=== PATIENT | male | born 1940 | race Caucasian/White ===

== ENCOUNTER → 2017-02-03 | Outpatient (CLI) | payer BC ==
[~2017-02-03] MED LIST: AMLO2.5T PO; ASPI81TA28 PO; ATOR-26 PO; CHOL100027 PO; DVN80 PO; FURO-85 PO; HYDR-4717 PO; INSDGI SC; INSU1INJ33 SQ; LEVO25TA5 PO; LYR50 PO; METO50TA16 PO; MISCCAP80 PO; NTRGSL/4 UT; NVLGI7030 SC; POTA-335 PO; PRLSR20 PO; TAMS0.4C38 PO; TRAM-10 PO
[2017-02-03 12:27] LABS: ALKALINE PHOSPHATASE 103 U/L (45-117); ALT/SGPT 24 U/L (12-78); AST/SGOT 10 U/L (15-37); BLOOD UREA NITROGEN 27 mg/dl (7-18); BUN/CREATININE RATIO 13.3 (10-20); CALCIUM 9.8 mg/dl (8.5-10.1); CARBON DIOXIDE 27 mmol/L (21-32); CHLORIDE 109 mmol/L (98-107); CHOLESTEROL 146 mg/dl (0-200); CHOLESTEROL/HDL RATIO 3.9; GLUCOSE 181 mg/dl (70-99); HDL CHOLESTEROL 37 mg/dl; LDL CHOLESTEROL CALCULATED 82 mg/dl; SODIUM 142 mmol/L (136-145); TRIGLYCERIDES 136 mg/dl (0-150); VERY LOW DENSITY LIPOPROT CALC 27 mg/dl
[2017-02-03 12:52] LABS: ESTIMATED AVERAGE GLUCOSE 183 mg/dl; HA1C FLAG Normal (Normal)
== END | disposition home or self-care (01) ==
LOC: C.LABBC 09:13
PROVIDERS: ATTEND Physician Assistant
DX: E11.9 Type 2 diabetes mellitus without complications (principal); N40.2 Nodular prostate without lower urinary tract symptoms; N18.3 Chronic kidney disease, stage 3 (moderate)

== ENCOUNTER → 2017-04-05 | Outpatient (CLI) | payer BC ==
[2017-04-05 11:30] LABS: HEMATOCRIT 37.6 % (42-52); MEAN CELL VOLUME 84.1 fL (80-100); MEAN CORPUSCULAR HGB CONC 30.9 g/dl (32-36); MEAN PLATELET VOLUME 11.6 fL (7.4-10.4); PLATELET COUNT 244 K/uL (130-400); RED BLOOD COUNT 4.47 M/uL (4.7-6.1)
[2017-04-05 11:44] LABS: BLOOD UREA NITROGEN 32 mg/dl (7-18); BUN/CREATININE RATIO 14.7 (10-20); CALCIUM 10.2 mg/dl (8.5-10.1); CARBON DIOXIDE 28 mmol/L (21-32); CHLORIDE 107 mmol/L (98-107); GLUCOSE 185 mg/dl (70-99); POTASSIUM 4.3 mmol/L (3.5-5.1); SODIUM 142 mmol/L (136-145)
[2017-04-05 11:45] LABS: URINE APPEARANCE CLEAR (CLEAR); URINE BILIRUBIN NEG (NEG); URINE COLOR YELLOW; URINE NITRITE NEG (NEG); URINE SPECIFIC GRAVITY 1.021 (1.000-1.030); UROBILINOGEN NEG (NEG)
[2017-04-05 11:47] LABS: MANUAL MICROSCOPIC REQUIRED? NO; REVIEW REQ? NO
[2017-04-05 11:49] LABS: FERRITIN 11.4 ng/ml (8.0-388.0); PHOSPHORUS 2.7 mg/dl (2.5-4.9); TOTAL IRON BINDING CAPACITY 378 mcg/dl (250-450)
[2017-04-05 12:04] LABS: URINE PROTIEN/CREAT RATIO 0.2 (0-0.2); URINE TOTAL PROTEIN 32.3 mg/dl (0-11.9)
== END ==
LOC: C.LABBC 08:55
PROVIDERS: ATTEND Physician Assistant Medical
DX: N18.3 Chronic kidney disease, stage 3 (moderate) (principal); I10 Essential (primary) hypertension; D64.9 Anemia, unspecified; E55.9 Vitamin D deficiency, unspecified; R31.0 Gross hematuria

== ENCOUNTER → 2017-05-22 | Outpatient (CLI) | payer BC ==
[2017-05-22 14:15] LABS: ESTIMATED AVERAGE GLUCOSE 214 mg/dl; HA1C FLAG Normal (Normal)
== END | disposition home or self-care (01) ==
LOC: C.LABBC 09:59
PROVIDERS: ATTEND Physician Assistant
DX: E11.9 Type 2 diabetes mellitus without complications (principal); Z79.4 Long term (current) use of insulin

== ENCOUNTER → 2017-06-29 | Outpatient (CLI) | payer BC ==
[~2017-06-29] MED LIST changes: -HYDR-4717 PO; -INSDGI SC; -METO50TA16 PO; -POTA-335 PO
== END | disposition home or self-care (01) ==
LOC: C.MAMM 09:04
PROVIDERS: ATTEND Internal Medicine Geriatric Medicine
DX: M85.89 Other specified disorders of bone density and structure, multiple sites (principal)

== ENCOUNTER → 2017-09-11 | Outpatient (CLI) | payer BC ==
[~2017-09-11] MED LIST changes: -CHOL100027 PO
[2017-09-11 10:50] LABS: URINE APPEARANCE CLEAR (CLEAR); URINE BILIRUBIN NEG (NEG); URINE COLOR YELLOW; URINE NITRITE NEG (NEG); URINE SPECIFIC GRAVITY 1.023 (1.000-1.030); UROBILINOGEN NEG (NEG)
[2017-09-11 10:58] LABS: MANUAL MICROSCOPIC REQUIRED? NO; REVIEW REQ? NO
== END | disposition home or self-care (01) ==
LOC: C.LABBC 08:40
PROVIDERS: ATTEND Internal Medicine Endocrinology, Diabetes & Metabolism
DX: E83.52 Hypercalcemia (principal); E21.3 Hyperparathyroidism, unspecified

== ENCOUNTER → 2017-10-09 | Outpatient (CLI) | payer BC ==
[2017-10-09 13:19] LABS: HEMATOCRIT 38.8 % (42-52); MEAN CELL VOLUME 84.2 fL (80-100); MEAN CORPUSCULAR HEMOGLOBIN 26.7 pg (25-34); MEAN CORPUSCULAR HGB CONC 31.7 g/dl (32-36); MEAN PLATELET VOLUME 11.4 fL (7.4-10.4); PLATELET COUNT 215 K/uL (130-400); RED BLOOD COUNT 4.61 M/uL (4.7-6.1); WHITE BLOOD COUNT 11.46 K/uL (4.8-10.8)
[2017-10-09 13:48] LABS: URINE APPEARANCE CLEAR (CLEAR); URINE BILIRUBIN NEG (NEG); URINE COLOR YELLOW; URINE EPITHELIAL CELL AUTO 0-5 /lpf (0-5); URINE NITRITE NEG (NEG); URINE SPECIFIC GRAVITY 1.024 (1.000-1.030); UROBILINOGEN NEG (NEG)
[2017-10-09 13:57] LABS: MANUAL MICROSCOPIC REQUIRED? NO; REVIEW REQ? NO
[2017-10-09 14:03] LABS: URINE PROTIEN/CREAT RATIO 0.2 (0-0.2); URINE TOTAL PROTEIN 38.3 mg/dl (0-11.9)
[2017-10-09 14:36] LABS: BLOOD UREA NITROGEN 31 mg/dl (7-18); CALCIUM 9.7 mg/dl (8.5-10.1); CARBON DIOXIDE 23 mmol/L (21-32); CHLORIDE 108 mmol/L (98-107); CREATININE 1.85 mg/dl (0.60-1.40); GLUCOSE 152 mg/dl (70-99); SODIUM 138 mmol/L (136-145)
[2017-10-09 14:37] LABS: PHOSPHORUS 2.4 mg/dl (2.5-4.9)
[2017-10-09 14:39] LABS: ESTIMATED AVERAGE GLUCOSE 192 mg/dl; HA1C FLAG Normal (Normal)
== END | disposition home or self-care (01) ==
LOC: C.LABBC 09:29
PROVIDERS: ATTEND Internal Medicine Nephrology
DX: N18.3 Chronic kidney disease, stage 3 (moderate) (principal); I12.9 Hypertensive chronic kidney disease with stage 1 through stage 4 chronic kidney disease, or unspecified chronic kidney disease; D64.9 Anemia, unspecified; E55.9 Vitamin D deficiency, unspecified; E11.65 Type 2 diabetes mellitus with hyperglycemia

== ENCOUNTER 2022-10-20 11:16 | Inpatient (IN) ==
--- NOTE | 2022-10-20 11:38 | Emergency Department Note ---
Impression & Plan Chest pain, A-fib, Coronary artery disease ED Provider Note NAME: RENEA TORIBIO AGE: 82 SEX: M : 1940 ARRIVES VIA: Walk-In INFORMANT: Patient ED PROVIDER(S): Oh Rothman DO CHIEF COMPLAINT: chest pain HPI: Patient is an 82-year-old male who presents to the ER for chest pain referred in by the PCP. He had his annual visit today. He notes he has been having intermittent chest pain with exertion over the past couple weeks. Today it was worse. Midsternal associate with shortness of breath. No arm or jaw pain. This morning he had an EKG at the PCPs and showed A. fib and he was referred in. He does have a history of previous stents as well as a CABG about 7 years ago. Following having the CABG he has not had A. fib. He notes his heart rate is normally running in the 50s to 60s. Recently over the past week he has been 70s to 80s. ROS: See above HPI for pertinent positives & negatives. A total of 10 systems reviewed and were otherwise negative. PAST MEDICAL HISTORY:See Below PAST SURGICAL HISTORY:See Below FAMILY HISTORY:See Below SOCIAL HISTORY:See Below HOME MEDICATIONS:See Below ALLERGIES:See Below VITALS:See Below PHYSICAL EXAMINATION: GENERAL: Sitting up in bed, alert, well appearing, well nourished, no distress, non-toxic EYE EXAM: normal conjunctiva. OROPHARYNX: mucous membranes are moist NECK: supple, no nuchal rigidity, no adenopathy, non-tender LUNGS: Clear to auscultation. Normal chest wall mechanics HEART: no murmurs, S1 normal and S2 normal ABDOMEN: abdomen soft, non-tender, normo-active bowel sounds, no masses, no rebound or guarding. UPPER EXTREMITIES: upper extremities are grossly normal. LOWER EXTREMITIES: No pitting edema. NEURO EXAM: Normal sensorium, cranial nerves II-XII grossly intact, normal speech, no gross weakness of arms, no gross weakness of legs. MEDICAL DECISION MAKING: Patient is a 82-year-old male who presents ER for exertional chest pain which has been going off and on for the past several weeks and has worsened significantly today. Was seen by the PCP referred in. History of CAD, diabetes, CABG with previous A. fib has been under control since about 7 years ago. They obtained EKG today referred him in for A. fib. IV was established blood work was obtained. Labs show no significant leukocytosis. No anemia. BMP along with LFTs bilirubin and lipase was unremarkable. Troponin was 18. EKG did show A. fib but rate controlled. Chest x-ray unremarkable. He was given aspirin. Pain-free while in the ER. Updated at bedside. Discussed with Dr. Fanny Lea for further evaluation and admission Triage Nursing notes reviewed. Limited review of prior medical records performed Vital Signs: reviewed and remarkable for no significant abnormalities Differential diagnosis: Cardiac ischemia, aortic dissection, pulmonary embolism, pneumothorax, pneumonia, pericarditis, myocarditis, esophageal rupture, GERD, cholecystitis, pancreatitis, musculoskeletal, as well as other pathologies. ER treatment provided: See below Diagnostics interpreted by me: ECG: A. fib rate of 75 Left axis No PVCs QTC 406 Cardiac Monitoring: An order was placed for continuous cardiac monitoring. The m onitor shows a rate of 80 with AFIB rhythm. Laboratory studies: As stated above and show below. Imaging studies: Portable AP upright 1 view of the chest shows no focal infiltrate or pneumothorax Consultation(s): Discussed definitely testing for further evaluation Procedures: none Critical Care: None Past Med/Surg History Medical History Carotid artery stenosis Chronic kidney disease, stage III (moderate) Coronary artery disease Followed by Cardiology, Dr. Delvalle Diabetes mellitus, type II Followed by Endocrinology Diabetic peripheral neuropathy associated with type 2 diabetes mellitus GERD (gastroesophageal reflux disease) History of Mohs micrographic surgery for skin cancer History of squamous cell carcinoma of skin Hyperlipidemia Hypertension Hypothyroidism Low back pain Moderate obstructive sleep apnea Multiple thyroid nodules (~2014) previous eval by Endo and repeat US Osteopenia Pancreatitis Peripheral vascular disease Prostate nodule Vitamin B12 deficiency Vitamin D deficiency Surgical History H/O colonoscopy History of coronary artery stent placement History of Mohs 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 January 2021 S/P CABG (coronary artery bypass graft) (~2014) S/P cholecystectomy Status post incision and drainage Family History Mother Diabetes Myocardial infarction Unknown Coronary heart disease Father Myocardial infarction Denies family history of Ovarian cancer Prostate cancer Breast cancer Lung cancer Colorectal cancer Social History Smoking Status: Former smoker Age Quit Using Tobacco: 36; Cigarettes Per Day: 1 pack a day; Second Hand Exposure: No; Hx Alcohol Use: Yes Alcohol type: beer Alcohol Intake Frequency: Monthly or Le ss Alcohol Intake Frequency Comment: social Hx Substance Use: No Preferred Language: Swedish Communication Ability: Effective Visual Impairment: Limited Hearing Ability: Normal marital status: Current Living Situation: Spouse current occupational status: retired How many Children do You have: 2 Feels Safe at Home: Yes Childhood Exposure to Second-Hand Smoke: Yes caffeine: Yes (cup of coffee daily ) Dental Care, Regularly: Yes Physical Activity Frequency: Daily Physical Activity Frequency Comment: walk Seatbelt Use: always Sunscreen Use: Yes Allergies Allergies Allergy/AdvReac Type Severity Reaction Status Date / Time shellfish derived Allergy Severe throat Verified 10/20/22 09:54 swelling adhesive Allergy Mild TAPE=RASH Verified 10/20/22 09:54 acetaminophen Allergy Unknown Verified 10/20/22 09:54 doxazosin Allergy Unknown Verified 10/20/22 09:54 oxycodone Allergy Unknown Unknown Verified 10/20/22 09:54 shrimp Allergy Unknown Unknown rxn Verified 10/20/22 09:54 codeine AdvReac Intermediate HALLUCINATI Verified 10/20/22 09:54 ONS diltiazem [From Cardizem] AdvReac Intermediate GI upset Verified 10/20/22 09:54 felodipine [From Plendil] AdvReac Intermediate edema Verified 10/20/22 09:54 heparin AdvReac Intermediate INEFFECTIVE Verified 10/20/22 09:54 zolpidem AdvReac Intermediate hallucinati Verified 10/20/22 09:54 ng diphenhydramine AdvReac Mild jittery Verified 10/20/22 09:54 duloxetine AdvReac Verified 10/20/22 09:54 Home Meds Home Medications Medication Instructions Recorded Confirmed amlodipine 5 mg tablet 5 mg PO DAILY #1 tab 08/02/19 10/20/22 aspirin 81 mg tablet,delayed 81 mg PO DAILY 08/06/19 10/20/22 release (Adult Aspirin Regimen) lactobacillus combination no.8 3 3,000 mmu cells PO DAILY 08/06/19 10/20/22 billion cell capsule (Adult Probiotic) rosuvastatin 40 mg tablet (Crestor) 40 mg PO DAILY 08/06/19 10/20/22 furosemide 40 mg tablet (Lasix) 60 mg PO DAILY 09/30/19 10/20/22 nystatin-triamcinolone 100,000 1 applic topical BID PRN irritation 09/08/21 10/20/22 unit/g-0.1 % topical cream mecobalamin (vitamin B12) 1,000 2,000 mcg PO DAILY 04/19/22 10/20/22 mcg chewable tablet nitroglycerin 0.3 mg sublingual 0.3 mg sublingual Q5M PRN Chest 04/19/22 10/20/22 tablet Pain cyanocobalamin (vitamin B-12) 1,000 mcg PO DAILY 10/20/22 10/20/22 1,000 mcg capsule omeprazole 20 mg capsule,delayed 20 mg PO QPM 10/20/22 10/20/22 release Previous Rx's Medication Instructions Recorded semaglutide 1 mg/dose (4 mg/3 mL) 1 mg (0.75 mL) subcut .COMPLEX #9 10/25/21 subcutaneous pen injector (Ozempic) mL tamsulosin 0.4 mg capsule 0.4 mg PO DAILY #90 caps 01/03/22 CPAP Supplies #1 ea 02/17/22 levothyroxine 25 mcg tablet See Rx Instructions .Route 03/30/22 .COMPLEX #90 tabs insulin degludec 200 unit/mL (3 90 unit (0.45 mL) subcut DAILY #45 05/17/22 mL) subcutaneous pen (Tresiba mL FlexTouch U-200 insulin) pregabalin 75 mg capsule 75 mg PO BID #180 caps 05/19/22 insulin aspart U-100 100 unit/mL See Rx Instructions .Route 06/22/22 (3 mL) subcutaneous pen (Novolog .COMPLEX #45 mL Flexpen U-100 Insulin aspart) OneTouch Verio test strips (blood #400 strips 07/13/22 sugar diagnostic) OneTouch Delica Lancets 33 gauge #400 ea 08/08/22 (lancets) valsartan 80 mg tablet 80 mg PO DAILY #90 tabs 10/04/22 metoprolol tartrate 25 mg tablet See Rx Instructions .Route 10/05/22 .COMPLEX #180 tabs pen needle, diabetic 31 gauge x #400 ea 10/10/22 5/16" (BD Ultra-Fine Short Pen Needle) Results & Data (ED) Vital Signs Vital Signs - 24 hr 10/20/22 11:19 10/20/22 11:33 10/20/22 11:35 Temperature 36.0 C L Temperature Source Temporal Artery Scan Pulse Rate 78 81 73 Pulse Rate from SpO2 Sensor 77 Pulse Rhythm Regular Pulse Strength Normal Respiratory Rate 18 16 21 Blood Pressure 156/83 H Blood Pressure Mean 107 Blood Pressure Position Sitting Pulse Oximetry 95 96 96 Oxygen Delivery Method Room Air Room Air Sepsis Recent Fever Within 48 Hours No Sepsis New/Unexplained Change in Mental Status No Sepsis Action Taken by Nursing No Action Required 10/20/22 11:40 10/20/22 11:50 10/20/22 12:00 Temperature Temperature Source Pulse Rate 71 67 Pulse Rate from SpO2 Sensor 74 69 Pulse Rhythm Pulse Strength Respiratory Rate 17 14 Blood Pressure 114/70 Blood Pressure Mean 84 Blood Pressure Position Pulse Oximetry 95 94 Oxygen Delivery Method Sepsis Recent Fever Within 48 Hours Sepsis New/Unexplained Change in Mental Status Sepsis Action Taken by Nursing 10/20/22 12:00 10/20/22 12:10 10/20/22 12:20 Temperature Temperature Source Pulse Rate 75 66 62 Pulse Rate from SpO2 Sensor 73 63 63 Pulse Rhythm Pulse Strength Respiratory Rate 16 10 L 11 L Blood Pressure Blood Pressure Mean Blood Pressure Position Pulse Oximetry 92 94 93 Oxygen Delivery Method Sepsis Recent Fever Within 48 Hours Sepsis New/Unexplained Change in Mental Status Sepsis Action Taken by Nursing 10/20/22 12:30 10/20/22 12:30 10/20/22 12:40 Temperature Temperature Source Pulse Rate 73 72 Pulse Rate from SpO2 Sensor 71 70 Pulse Rhythm Pulse Strength Respiratory Rate 17 14 Blood Pressure 118/70 Blood Pressure Mean 86 Blood Pressure Position Pulse Oximetry 94 93 Oxygen Delivery Method Sepsis Recent Fever Within 48 Hours Sepsis New/Unexplained Change in Mental Status Sepsis Action Taken by Nursing 10/20/22 12:50 Temperature Temperature Source Pulse Rate 58 L Pulse Rate from SpO2 Sensor 62 Pulse Rhythm Pulse Strength Respiratory Rate 20 Blood Pressure Blood Pressure Mean Blood Pressure Position Pulse Oximetry 94 Oxygen Delivery Method Sepsis Recent Fever Within 48 Hours Sepsis New/Unexplained Change in Mental Status Sepsis Action Taken by Nursing Laboratory Data Result diagrams: 10/20/22 11:55 10/20/22 11:55 Lab Results 10/20/22 10/20/22 Range/Units 11:55 11:55 WBC 7.11 (4.8-10.8) K/ul RBC 4.55 L (4.63-6.08) M/uL Hgb 13.1 L (14.0-18.0) g/dl Hct 40.1 (40.1-51.0) % MCV 88.1 (80.0-100.0) fL MCH 28.8 (25.0-34.0) pg MCHC 32.7 (32.0-36.0) g/dL RDW Std Deviation 45.3 (36.4-46.3) fL RDW Coeff of Poly 14.0 (11.5-14.5) % Plt Count 204 (130-400) K/uL MPV 10.9 (9.4-12.4) fL Immature Gran % (Auto) 0.3 % Neut % (Auto) 65.3 % Lymph % (Auto) 21.9 % [place] % (Auto) 7.3 % Eos % (Auto) 4.8 % Baso % (Auto) 0.4 % Neut # (Auto) 4.64 (1.4-6.5) K/uL Lymph # (Auto) 1.56 (1.2-3.4) K/uL [place] # (Auto) 0.52 (0.24-0.82) K/uL Eos # (Auto) 0.34 (0-0.50) K/uL Baso # (Auto) 0.03 (0-0.2) K/uL Immature Gran # (Auto) 0.02 (0.00-0.02) K/uL Sodium 141 (136-145) mmol/L Potassium 3.7 (3.5-5.1) mmol/L Chloride 107 (98-107) mmol/L Carbon Dioxide 28 (21-32) mmol/L Anion Gap 6 (3-11) BUN 17 (6-23) mg/dl Creatinine 1.64 H (0.6-1.4) mg/dl Est Cr Clr Drug Dosing 44.2 ml/min Est GFR ( Amer) 44.8 ml/min Est GFR (Non-Af Amer) 38.6 ml/min BUN/Creatinine Ratio 10.4 (10-20) Glucose 166 H (70-99(Fasting)) mg/dl Calcium 10.2 H (8.5-10.1) mg/dl Total Bilirubin 0.6 (0.2-1.0) mg/dl AST 16 (13-39) U/L ALT 17 (7-52) U/L Alkaline Phosphatase 68 (34-104) U/L Troponin I High Sens 18.0 (0-20) pg/ml Total Protein 6.8 (6.0-8.3) gm/dl Albumin 3.9 (3.4-5.0) gm/dl Globulin 2.9 (2.5-4.0) gm/dl Albumin/Globulin Ratio 1.3 (0.9-2) Lipase 31 (11-82) U/L Administered Medications Discontinued Medications Aspirin (Aspirin Chew 324 Mg) 240 mg PO NOW STA Stop: 10/20/22 12:38 Last Admin: 10/20/22 12:45 Dose: 240 mg Documented By: [facility] Imaging Data Radiologist's Impression: Chest X-Ray 10/20/22 11:24 XR chest 1V portable HISTORY: 82 years-old Male Chest pain, nonspecific COMPARISON: Acute abdominal series radiographs 10/27/2015 TECHNIQUE: AP view of the chest FINDINGS: Cardiac silhouette is enlarged. Prior median sternotomy with CABG. No pneumothorax, pleural effusion, airspace consolidation or overt pulmonary edema. Degenerative changes of the shoulders and spine. Moderate sized hiatal hernia. IMPRESSION: 1. Cardiomegaly without acute process. 2. Moderate sized hiatal hernia. ACT 112: Negative or not required by law. The above report was generated using voice recognition software. It may contain grammatical, syntax or spelling errors. Electronically signed by: Michael Ro M.D. 10/20/2022 11:47 AM Discharge Plan Visit Data Chief Complaint: Chest Pain Stated Complaint: TESTING REQUEST ED Provider: Oh Rothman Discharge Problem: Chest pain, A-fib, Coronary artery disease Forms Stand Alone Forms: My [employer] Prescriptions Prescriptions: No Action tamsulosin 0.4 mg capsule 0.4 mg PO DAILY Qty: 90 3RF Rx Instructions: TAKE 1 CAPSULE DAILY. (DME) CPAP Supplies Misc See Rx Instructions .Route Qty: 1 0RF Rx Instructions: As directed levothyroxine 25 mcg tablet See Rx Instructions .ROUTE .COMPLEX Qty: 90 3RF Dose Instruction: TAKE 1 TABLET BY MOUTH EVERY DAY Rx Instructions: TAKE 1 TABLET BY MOUTH EVERY DAY Tresiba FlexTouch U-200 200 unit/mL (3 mL) insulin pen 90 unit SQ DAILY Qty: 45 1RF Novolog Flexpen U-100 Insulin 100 unit/mL (3 mL) insulin pen See Rx Instructions .ROUTE .COMPLEX Qty: 45 3RF Rx Instructions: sliding scale (DME) OneTouch Verio test strips Strip See Rx Instructions .ROUTE .COMPLEX Qty: 400 3RF Dose Instruction: TEST BLOOD SUGAR 4 TIMES DAILY Rx Instructions: TEST BLOOD SUGAR 4 TIMES DAILY (DME) lancets [OneTouch Delica Lancets] 33 gauge misc See Rx Instructions .ROUTE .MEDSUPPLY Qty: 400 1RF Rx Instructions: test 4 times daily valsartan 80 mg tablet 80 mg PO DAILY Qty: 90 3RF metoprolol tartrate 25 mg tablet See Rx Instructions .ROUTE .COMPLEX Qty: 180 3RF Dose Instruction: TAKE 1 TABLET BY MOUTH TWICE A DAY Rx Instructions: TAKE 1 TABLET BY MOUTH TWICE A DAY (DME) pen needle, diabetic [BD Ultra-Fine Short Pen Needle] 31 gauge x 5/16" needle See Rx Instructions .ROUTE .MEDSUPPLY Qty: 400 3RF Rx Instructions: Use four times daily with insulin amlodipine 5 mg tablet 5 mg PO DAILY Qty: 1 aspirin [Adult Aspirin Regimen] 81 mg tablet,delayed release (DR/EC) 81 mg PO DAILY rosuvastatin [Crestor] 40 mg tablet 40 mg PO DAILY Adult Probiotic 3 billion cell capsule 3,000 mmu cells PO DAILY furosemide [Lasix] 40 mg tablet 60 mg PO DAILY Ozempic 1 mg/dose (4 mg/3 mL) pen injector 1 mg subcut .COMPLEX Qty: 9 3RF Rx Instructions: 1 mg subcut once a week; pregabalin 75 mg capsule 75 mg PO BID Qty: 180 1RF nystatin-triamcinolone 100,000-0.1 unit/g-% cream 1 applic topical BID PRN (Reason: irritation) mecobalamin (vitamin B12) 1,000 mcg tablet,chewable 2,000 mcg PO DAILY nitroglycerin 0.3 mg tablet, sublingual 0.3 mg sublingual Q5M PRN (Reason: Chest Pain) Rx Instructions: do not exceed 3 doses per episode cyanocobalamin (vitamin B-12) 1,000 mcg capsule 1,000 mcg PO DAILY omeprazole 20 mg capsule,delayed release(DR/EC) 20 mg PO QPM Referrals Referrals: Allen Villalpando DO [Primary Care Provider] -
--- NOTE | 2022-10-20 11:48 | XRay Report ---
XR chest 1V portable HISTORY: 82 years-old Male Chest pain, nonspecific COMPARISON: Acute abdominal series radiographs 10/27/2015 TECHNIQUE: AP view of the chest FINDINGS: Cardiac silhouette is enlarged. Prior median sternotomy with CABG. No pneumothorax, pleural effusion, airspace consolidation or overt pulmonary edema. Degenerative changes of the shoulders and spine. Mo derate sized hiatal hernia. IMPRESSION: 1. Cardiomegaly without acute process. 2. Moderate sized hiatal hernia. ACT 112: Negative or not required by law. The above report was generated using voice recognition software. It may contain grammatical, syntax o r spelling errors. Electronically signed by: Michael Ro M.D. 10/20/2022 11:47 AM
[2022-10-20 12:10] LABS: Basophils # (auto) 0.03 K/uL (0-0.2); Basophils % (auto) 0.4 %; Eosinophils # (auto) 0.34 K/uL (0-0.50); Eosinophils % (auto) 4.8 %; Hematocrit (blood only) 40.1 % (40.1-51.0); Hemoglobin 13.1 g/dl (14.0-18.0); Immature Granulocytes # (auto) 0.02 K/uL (0.00-0.02); Immature Granulocytes % (auto) 0.3 %; Lymphocytes # (auto) 1.56 K/uL (1.2-3.4); Lymphocytes % (auto) 21.9 %; Mean Corpuscular Hemoglobin 28.8 pg (25.0-34.0); Mean Corpuscular Hgb Conc 32.7 g/dL (32.0-36.0); Mean Corpuscular Volume 88.1 fL (80.0-100.0); Mean Platelet Volume 10.9 fL (9.4-12.4); Monocytes # (auto) 0.52 K/uL (0.24-0.82); Monocytes % (auto) 7.3 %; Neutrophils # (auto) 4.64 K/uL (1.4-6.5); Neutrophils % (auto) 65.3 %; Platelet Count 204 K/uL (130-400); RDW Standard Deviation 45.3 fL (36.4-46.3); Red Blood Count 4.55 M/uL (4.63-6.08); White Blood Count 7.11 K/ul (4.8-10.8)
[2022-10-20] MEDS ORDERED: ASPIRIN CHEW 324 MG PO STA (12:37)
[2022-10-20 12:48] LABS: Albumin Globulin Ratio 1.3 (0.9-2); Albumin Level 3.9 gm/dl (3.4-5.0); BUN Creatinine Ratio 10.4 (10-20); Bilirubin,Total 0.6 mg/dl (0.2-1.0); Calcium 10.2 mg/dl (8.5-10.1); Creatinine Clr Calc Pharmacy 44.2 ml/min; Est GFR (African American) 44.8 ml/min; Est GFR (Non-African American) 38.6 ml/min; Globulin 2.9 gm/dl (2.5-4.0); Potassium 3.7 mmol/L (3.5-5.1); Total Protein 6.8 gm/dl (6.0-8.3)
[2022-10-20] MEDS ORDERED: POTASSIUM CHLORIDE CRTAB 20 MEQ TABCR PO STA (13:05)
--- NOTE | 2022-10-20 13:13 | History & Physical Report ---
Date of Service October 20, 2022 Assessment & Plan (1) Chest pain, exertional: Plan: Presents with unstable angina with exertional chest pain new over the last few weeks With a history of three-vessel CABG Initial troponin negative, ECG without ischemic changes but and new onset atrial fibrillation High risk for recurrent disease -Admit to PCU -Consult his fountain dispenser, Dr. Harshal Delvalle, and discussed whether to pursue nuclear stress test versus cardiac catheterization-I did discuss his care with cardiology who feels this chest pressure may be related to the atrial fibrillation -Monitor for recurrent chest pain -Trend serial troponin -Had recent echocardiogram last month with preserved EF as per discussion with his fountain dispenser-no need to repeat at this point -Continue home aspirin 81 mg daily, rosuvastatin 40 mg daily, valsartan, and metoprolol -Nitroglycerin as needed for recurrent chest pain -Atrial fibrillation management as below-plan for BRAVO and cardioversion and if chest pain resolves, no need for ischemic evaluation -No need for heparin drip-starting Eliquis for atrial fibrillation (2) New onset atrial fibrillation: Plan: Has a history of postoperative atrial fibrillation after CABG in 2014 and previously on amiodarone therapy without any recurrence since that time until now -Rates are controlled here -Monitor on telemetry -We will need to start anticoagulation- I did discuss with cardiology as to whether he needed a heparin drip temporarily if he will have a repeat cardiac catheterization. As no catheterization planned, will plan to start Eliquis 2.5 Mg p.o. twice daily given age and renal function -Keep n.p.o. after midnight and hold metoprolol with plans for likely BRAVO and cardioversion in the morning-cardiology to arrange this-patient and are agreeable to the procedure -Hopefully with cardioversion to sinus rhythm, his symptoms will improve (3) (HFpEF) heart failure with preserved ejection fraction: Plan: Last echocardiogram at [facility] cardiology in 08/2022 with preserved EF, right-sided heart failure, mild pulmonary hypertension, grade 3 diastolic dysfunction Check proBNP Weight is up 2 kg since several months ago and patient reports a weight gain of 4 pounds just in the last few weeks and some increased lower extremity edema Could have some mild acute on chronic HFpEF given new onset atrial fibrillation for the last few weeks Continue current diuretics with Lasix 60 mg once daily by mouth but may need IV diuretics-Will monitor (4) Hypertension: Plan: Blood pressures are controlled Continue home valsartan, amlodipine, Lasix, but hold home metoprolol as above for cardioversion tomorrow (5) Coronary artery disease: Plan: S/p three-vessel CABG in 2014 Continue meds as above (6) Type 2 diabetes mellitus with insulin therapy: Plan: Hemoglobin A1c 7.9% in 08/2022 On Ozempic at home in addition to insulin -NovoLog and Lantus to be used while here Accu-Cheks and diabetic diet (7) Chronic kidney disease, stage III (moderate): Plan: Creatinine at baseline at 1.6 -Avoid nephrotoxins -renally dose meds when appropriate -follow BMP (8) Hypothyroidism: Plan: Last TSH normal in 08/2021 Repeat TSH now given atrial fibrillation (9) GERD (gastroesophageal reflux disease): Plan: Continue PPI (10) Moderate obstructive sleep apnea: Plan: He has not been using his CPAP due to discomfort for the last few months but is now agreeable to using it as he is in atrial fibrillation Will order for here as the weather is bad and his will not be able to bring in his CPAP from home for this evening (11) Obesity: Plan: BMI 35.3 Encourage weight loss Is on Ozempic now (12) Vitamin B12 deficiency: Plan: Continue home B12 (13) Pulmonary hypertension: Plan: Previously severe, now noted to be mild as per cardiology With right-sided heart failure Continue diuretics, treatment for CHARLES (14) Diabetic peripheral neuropathy associated with type 2 diabetes mellitus: Plan: Continue pregabalin (15) Carotid artery stenosis: Plan: Continue aspirin and statin Follows with cardiology Also with left subclavian artery stenosis asymptomatic-follows with cardiology (16) Hyperlipidemia: Plan: Continue statin Plan DVT prophylaxis-Eliquis Disposition-admit to PCU, BRAVO in the morning with possible cardioversion and then hopeful for discharge later tomorrow if doing well Full code History of Present Illness Chief Complaint: Chest pain, atrial fibrillation Primary Care Provider: Allen Villalpando, DO This patient is an 82-year-old male with a history of CAD s/p CABG, post CABG lone atrial fibrillation, DM2 with neuropathy, BPH, HTN, hypothyroidism, CKD stage III, hyperlipidemia, right-sided heart failure, pulmonary hypertension, HFpEF, high-grade left subclavian artery stenosis-asymptomatic, and moderate bilateral ANGLEIKA, GERD, obesity, and LLE DVT, who presents to the ER with exertional dyspnea and perhaps some mild pressure in the chest for 10 days. He is also noticed his heart rate is higher than usual for the last 10 days with rates in the 80s. Then, this morning he had increased amount of chest tightness while using his snowblower that went away with rest. He took 2 baby aspirin at home and came to the ER. The chest pressure is improved and was resolved then occasionally comes back as a mild tightness but goes away spontaneously. He denies lightheadedness. He has had some weight gain of about 4 pounds over the last month and some increased leg swelling. He was seen at his PCP office who noted him to be in atrial fibrillation with rates controlled but given the unstable angina type picture, he was sent to the ER for further evaluation. His troponin was in the normal range at 18, ECG showed A. fib, rate controlled, no ischemic changes. His creatinine was at baseline at 1.6, otherwise labs fairly unremarkable. Chest x-ray negative. His vital signs were fairly unremarkable. He will be admitted for further cardiac evaluation given unstable angina and new onset atrial fibrillation. Allergies Allergy/AdvReac Type Severity Reaction Status Date / Time shellfish derived Allergy Severe throat Verified 10/20/22 09:54 swelling adhesive Allergy Mild TAPE=RASH Verified 10/20/22 09:54 acetaminophen Allergy Unknown Verified 10/20/22 09:54 doxazosin Allergy Unknown Verified 10/20/22 09:54 oxycodone Allergy Unknown Unknown Verified 10/20/22 09:54 shrimp Allergy Unknown Unknown rxn Verified 10/20/22 09:54 codeine AdvReac Intermediate HALLUCINATI Verified 10/20/22 09:54 ONS diltiazem [From Cardizem] AdvReac Intermediate GI upset Verified 10/20/22 09:54 felodipine [From Plendil] AdvReac Intermediate edema Verified 10/20/22 09:54 heparin AdvReac Intermediate INEFFECTIVE Verified 10/20/22 09:54 zolpidem AdvReac Intermediate hallucinati Verified 10/20/22 09:54 ng diphenhydramine AdvReac Mild jittery Verified 10/20/22 09:54 duloxetine AdvReac Verified 10/20/22 09:54 Home Medications Medication Instructions Recorded Confirmed Type amlodipine 5 mg tablet 5 mg PO DAILY #1 tab 08/02/19 10/20/22 History aspirin 81 mg tablet,delayed 81 mg PO DAILY 08/06/19 10/20/22 History release (Adult Aspirin Regimen) lactobacillus combination no.8 3 3,000 mmu cells PO DAILY 08/06/19 10/20/22 History billion cell capsule (Adult Probiotic) rosuvastatin 40 mg tablet (Crestor) 40 mg PO DAILY 08/06/19 10/20/22 History furosemide 40 mg tablet (Lasix) 60 mg PO DAILY 09/30/19 10/20/22 History nystatin-triamcinolone 100,000 1 applic topical BID PRN irritation 09/08/21 10/20/22 History unit/g-0.1 % topical cream semaglutide 1 mg/dose (4 mg/3 mL) 1 mg (0.75 mL) subcut .COMPLEX #9 10/25/21 10/20/22 Rx subcutaneous pen injector (Ozempic) mL tamsulosin 0.4 mg capsule 0.4 mg PO DAILY #90 caps 01/03/22 10/20/22 Rx CPAP Supplies #1 ea 02/17/22 10/20/22 Rx levothyroxine 25 mcg tablet See Rx Instructions .Route 03/30/22 10/20/22 Rx .COMPLEX #90 tabs mecobalamin (vitamin B12) 1,000 2,000 mcg PO DAILY 04/19/22 10/20/22 History mcg chewable tablet nitroglycerin 0.3 mg sublingual 0.3 mg sublingual Q5M PRN Chest 04/19/22 10/20/22 History tablet Pain insulin degludec 200 unit/mL (3 90 unit (0.45 mL) subcut DAILY #45 05/17/22 10/20/22 Rx mL) subcutaneous pen (Tresiba mL FlexTouch U-200 insulin) pregabalin 75 mg capsule 75 mg PO BID #180 caps 05/19/22 10/20/22 Rx insulin aspart U-100 100 unit/mL See Rx Instructions .Route 06/22/22 10/20/22 Rx (3 mL) subcutaneous pen (Novolog .COMPLEX #45 mL Flexpen U-100 Insulin aspart) OneTouch Verio test strips (blood #400 strips 07/13/22 10/20/22 Rx sugar diagnostic) OneTouch Delica Lancets 33 gauge #400 ea 08/08/22 10/20/22 Rx (lancets) valsartan 80 mg tablet 80 mg PO DAILY #90 tabs 10/04/22 10/20/22 Rx metoprolol tartrate 25 mg tablet See Rx Instructions .Route 10/05/22 10/20/22 Rx .COMPLEX #180 tabs pen needle, diabetic 31 gauge x #400 ea 10/10/22 10/20/22 Rx 5/16" (BD Ultra-Fine Short Pen Needle) cyanocobalamin (vitamin B-12) 1,000 mcg PO DAILY 10/20/22 10/20/22 History 1,000 mcg capsule omeprazole 20 mg capsule,delayed 20 mg PO QPM 10/20/22 10/20/22 History release Past Med/Surg History Medical History (Updated 10/20/22 @ 13:09 by Fanny Lea MD) (HFpEF) heart failure with preserved ejection fraction Carotid artery stenosis Chronic kidney disease, stage III (moderate) Coronary artery disease Followed by Cardiology, Dr. Delvalle Diabetes mellitus, type II Followed by Endocrinology Diabetic peripheral neuropathy associated with type 2 diabetes mellitus GERD (gastroesophageal reflux disease) History of Mohs micrographic surgery for skin cancer History of squamous cell carcinoma of skin Hyperlipidemia Hypertension Hypothyroidism Low back pain Moderate obstructive sleep apnea Multiple thyroid nodules (~2014) previous eval by Endo and repeat US Osteopenia Pancreatitis Peripheral vascular disease Prostate nodule Pulmonary hypertension Vitamin B12 deficiency Vitamin D deficiency Surgical History H/O colonoscopy History of coronary artery stent placement History of Mohs 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 January 2021 S/P CABG (coronary artery bypass graft) (~2014) S/P cholecystectomy Status post incision and drainage Family History Mother Diabetes Myocardial infarction Unknown Coronary heart disease Father Myocardial infarction Denies family history of Ovarian cancer Prostate cancer Breast cancer Lung cancer Colorectal cancer Social History Smoking Status: Former smoker Age Quit Using Tobacco: 36; Cigarettes Per Day: 1 pack a day; Second Hand Exposure: No; Hx Alcohol Use: Yes Alcohol type: beer Alcohol Intake Frequency: Monthly or Less Alcohol Intake Frequency Comment: social Hx Substance Use: No Preferred Language: Slovak Communication Ability: Effective Visual Impairment: Limited Hearing Ability: Normal marital status: Current Living Situation: Spouse current occupational status: retired How many Children do You have: 2 Feels Safe at Home: Yes Childhood Exposure to Second-Hand Smoke: Yes caffeine: Yes (cup of coffee daily ) Dental Care, Regularly: Yes Physical Activity Frequency: Daily Physical Activity Frequency Comment: walk Seatbelt Use: always Sunscreen Use: Yes Review of Systems Review of Systems: All systems reviewed & are unremarkable except as noted in HPI & below Physical Exam Constitutional: WD/WN, vitals as above Eyes: PERRL, conjunctivae normal, anicteric sclerae ENMT: external ear and nose normal, oropharynx normal Neck: trachea midline, no thyromegaly Respiratory: normal respiratory effort, lungs clear to auscultation Cardiovascular: Rate/Rhythm: regular rate and + irregularly irregular Heart Sounds: no murmur Vessels: dorsalis pedis pulses present Extremities: + edema (Trace pitting edema left greater than right legs) Chest (Breasts): Chest: normal inspection of chest Gastrointestinal (Abdomen): normal bowel sounds, soft, nontender, no hepatosplenomegaly (Obese abdomen) Musculoskeletal: Extremities: extremities normal to inspection; no cyanosis and no clubbing Skin: no rashes, warm and dry (Except chronic venous stasis changes left greater than right legs) Neurologic: moves all extremities and awake; no focal motor deficits Psychiatric: A+Ox3, euthymic affect Results & Data Results & Data ([facility]) Vital Signs (Past 12 Hours) Vital Signs Temp Pulse Resp BP Pulse Ox O2 Del Method 10/20/22 12:50 58 L 20 94 10/20/22 12:40 72 14 93 10/20/22 12:30 73 17 94 10/20/22 12:30 118/70 10/20/22 12:20 62 11 L 93 10/20/22 12:10 66 10 L 94 10/20/22 12:00 75 16 92 10/20/22 12:00 114/70 10/20/22 11:50 67 14 94 10/20/22 11:40 71 17 95 10/20/22 11:35 73 21 96 10/20/22 11:33 81 16 96 Room Air 10/20/22 11:19 36.0 C L 78 18 156/83 H 95 Room Air Laboratory Results 10/20/22 10/20/22 Range/Units 11:55 11:55 WBC 7.11 (4.8-10.8) K/ul RBC 4.55 L (4.63-6.08) M/uL Hgb 13.1 L (14.0-18.0) g/dl Hct 40.1 (40.1-51.0) % MCV 88.1 (80.0-100.0) fL MCH 28.8 (25.0-34.0) pg MCHC 32.7 (32.0-36.0) g/dL RDW Std Deviation 45.3 (36.4-46.3) fL RDW Coeff of Poly 14.0 (11.5-14.5) % Plt Count 204 (130-400) K/uL MPV 10.9 (9.4-12.4) fL Immature Gran % (Auto) 0.3 % Neut % (Auto) 65.3 % Lymph % (Auto) 21.9 % [place] % (Auto) 7.3 % Eos % (Auto) 4.8 % Baso % (Auto) 0.4 % Neut # (Auto) 4.64 (1.4-6.5) K/uL Lymph # (Auto) 1.56 (1.2-3.4) K/uL [place] # (Auto) 0.52 (0.24-0.82) K/uL Eos # (Auto) 0.34 (0-0.50) K/uL Baso # (Auto) 0.03 (0-0.2) K/uL Immature Gran # (Auto) 0.02 (0.00-0.02) K/uL Sodium 141 (136-145) mmol/L Potassium 3.7 (3.5-5.1) mmol/L Chloride 107 (98-107) mmol/L Carbon Dioxide 28 (21-32) mmol/L Anion Gap 6 (3-11) BUN 17 (6-23) mg/dl Creatinine 1.64 H (0.6-1.4) mg/dl Est Cr Clr Drug Dosing 44.2 ml/min Est GFR ( Amer) 44.8 ml/min Est GFR (Non-Af Amer) 38.6 ml/min BUN/Creatinine Ratio 10.4 (10-20) Glucose 166 H (70-99(Fasting)) mg/dl Calcium 10.2 H (8.5-10.1) mg/dl Total Bilirubin 0.6 (0.2-1.0) mg/dl AST 16 (13-39) U/L ALT 17 (7-52) U/L Alkaline Phosphatase 68 (34-104) U/L Troponin I High Sens 18.0 (0-20) pg/ml Total Protein 6.8 (6.0-8.3) gm/dl Albumin 3.9 (3.4-5.0) gm/dl Globulin 2.9 (2.5-4.0) gm/dl Albumin/Globulin Ratio 1.3 (0.9-2) Lipase 31 (11-82) U/L Diagnostic Findings Chest X-Ray 10/20/22 11:24 XR chest 1V portable HISTORY: 82 years-old Male Chest pain, nonspecific COMPARISON: Acute abdominal series radiographs 10/27/2015 TECHNIQUE: AP view of the chest FINDINGS: Cardiac silhouette is enlarged. Prior median sternotomy with CABG. No pneumothorax, pleural effusion, airspace consolidation or overt pulmonary edema. Degenerative changes of the shoulders and spine. Moderate sized hiatal hernia. IMPRESSION: 1. Cardiomegaly without acute process. 2. Moderate sized hiatal hernia. ACT 112: Negative or not required by law. The above report was generated using voice recognition software. It may contain grammatical, syntax or spelling errors. Electronically signed by: Michael Ro M.D. 10/20/2022 11:47 AM ECG Additional Comments: ECG on 10/20/2022 at 11:26 AM with atrial fibrillation, rate 75, no ischemic changes Code Status & VTE Plan VTE Prophylaxis Plan VTE Prophylaxis will be ordered: Yes PG Care Time/CCT Total # of Minutes Spent Total Time Spent with Patient: Total time spent is greater than 50% in coordination of care (as documented) at patient's floor/unit and/or counseling patient: Coding Level of Care Code 91512 Initial Inpt Care Lvl 3 Diagnoses Chest pain, exertional R07.9 New onset atrial fibrillation I48.91 (HFpEF) heart failure with preserved ejection fraction I50.30 Hypertension I10 Hypertension type: essential hypertension Coronary artery disease I25.10 Associated angina: unspecified whether angina present Coronary Disease-Associated Artery/Lesion type: resighini artery [place] vs. transplanted heart: resighini heart Type 2 diabetes mellitus with insulin therapy E11.9; Z79.4 Chronic kidney disease, stage III (moderate) N18.3 Hypothyroidism E03.9 Hypothyroidism type: unspecified GERD (gastroesophageal reflux disease) K21.9 Moderate obstructive sleep apnea G47.33 Obesity E66.01; Z68.36 Body mass index: BMI 36.0-36.9 Obesity classification: adult class 2 (BMI 35 - 39.9) Obesity type: due to excess calories Serious obesity comorbidity presence: with serious comorbidity Vitamin B12 deficiency E53.8 Pulmonary hypertension I27.20 Diabetic peripheral neuropathy associated with type 2 diabetes mellitus E11.42 Carotid artery stenosis I65.29 Hyperlipidemia E78.2 Hyperlipidemia type: mixed hyperlipidemia (1) Coronary artery disease Associated angina: unspecified whether angina present Coronary Disease- Associated Artery/Lesion type: resighini artery [place] vs. transplanted heart: resighini heart Qualified Code(s): I25.10 - Atherosclerotic heart disease of resighini coronary artery without angina pectoris (2) Hyperlipidemia Hyperlipidemia type: mixed hyperlipidemia Qualified Code(s): E78.2 - Mixed hyperlipidemia (3) Hypothyroidism Hypothyroidism type: unspecified Qualified Code(s): E03.9 - Hypothyroidism, unspecified (4) Hypertension Hypertension type: essential hypertension Qualified Code(s): I10 - Essential (primary) hypertension (5) Obesity Body mass index: BMI 36.0-36.9 Obesity classification: adult class 2 (BMI 35 - 39.9) Obesity type: due to excess calories Serious obesity comorbidity presence: with serious comorbidity Qualified Code(s): E66.01 - Morbid (severe) obesity due to excess calories; Z68.36 - Body mass index [BMI] 36.0-36.9, adult
[2022-10-20] MEDS ORDERED: GLUCOSE 10 TAB/TUBE PO PRN (16:22)
[2022-10-20] MEDS ORDERED: ONDANSETRON INJ 2 MG/ML 2 ML VIAL IV PRN (16:22)
[2022-10-20] MEDS ORDERED: GLUCOSE 40% GEL 15 GM TUBE PO PRN (16:22)
[2022-10-20] MEDS ORDERED: DEXTROSE 50% 50 ML SYRINGE IV PRN (16:22)
[2022-10-20] MEDS ORDERED: POLYETHYLENE (MIRALAX) 17 GM PACK PO PRN (16:22)
[2022-10-20] MEDS ORDERED: GLUCAGON FOR INJ 1 MG VIAL SQ PRN (16:22)
[2022-10-20] MEDS ORDERED: CARBOHYDRATES FOR HYPOGLYCEMIA PO PRN (16:22)
[2022-10-20] MEDS ORDERED: NITROGLYCERIN SL 0.4 MG/TAB TAB SL PRN (16:42)
[2022-10-20] MEDS: APIXABAN 2.5 MG TAB PO SCH (17:45)
[2022-10-20] MEDS: INSULIN ASPART PER UNIT SC SCH ×2 (17:55→21:00)
[2022-10-20] MEDS ORDERED: FUROSEMIDE INJ 20 MG/2 ML VIAL IV ONE (18:15)
[2022-10-20] MEDS ORDERED: MAGNESIUM SULFATE / D5W 1 GM/100 ML BAG IV ONE (18:15)
[2022-10-20] MEDS: PREGABALIN 75 MG CAP PO SCH (21:00)
[2022-10-20] MEDS ORDERED: PANTOprazole 40 MG TAB PO SCH (21:00)
[2022-10-21 05:58] LABS: Basophils # (auto) 0.05 K/uL (0-0.2); Basophils % (auto) 0.7 %; Eosinophils # (auto) 0.42 K/uL (0-0.50); Eosinophils % (auto) 5.6 %; Hematocrit (blood only) 41.9 % (40.1-51.0); Hemoglobin 13.8 g/dl (14.0-18.0); Immature Granulocytes # (auto) 0.02 K/uL (0.00-0.02); Immature Granulocytes % (auto) 0.3 %; Lymphocytes # (auto) 1.94 K/uL (1.2-3.4); Mean Corpuscular Hemoglobin 28.7 pg (25.0-34.0); Mean Corpuscular Hgb Conc 32.9 g/dL (32.0-36.0); Mean Corpuscular Volume 87.1 fL (80.0-100.0); Mean Platelet Volume 10.8 fL (9.4-12.4); Monocytes # (auto) 0.63 K/uL (0.24-0.82); Monocytes % (auto) 8.4 %; Neutrophils # (auto) 4.41 K/uL (1.4-6.5); Platelet Count 199 K/uL (130-400); RDW Coefficient of Variation 14.1 % (11.5-14.5); RDW Standard Deviation 45.1 fL (36.4-46.3); Red Blood Count 4.81 M/uL (4.63-6.08); White Blood Count 7.47 K/ul (4.8-10.8)
[2022-10-21 06:29] LABS: BUN Creatinine Ratio 10.2 (10-20); Calcium 9.6 mg/dl (8.5-10.1); Creatinine Clr Calc Pharmacy 42.9 ml/min; Est GFR (African American) 43.8 ml/min; Est GFR (Non-African American) 37.8 ml/min; Potassium 3.8 mmol/L (3.5-5.1)
[2022-10-21] MEDS ORDERED: LEVOTHYROXINE SODIUM 25 MCG TABLET PO SCH (06:30)
[2022-10-21] MEDS ORDERED: BENZOCAINE/TETRACAIN/BUTAM 50 APPLN/5 GM CAN EXT ONE (07:09)
[2022-10-21] MEDS ORDERED: PROPOFOL IV EMULSION 10 MG/ML 20 ML VIAL IV ONE (07:20)
[2022-10-21] MEDS ORDERED: fentaNYL citrate 100 MCG/2 ML VIAL ONE (07:20)
[2022-10-21] MEDS ORDERED: LIDOCAINE 2% MPF LOCAL 5 ML VIAL INFIL ONE (07:21)
--- NOTE | 2022-10-21 07:36 | Anesthesiology Consultation ---
Date of Service October 21, 2022 Assessment & Plan Chart Review Chart Review: Acceptable Risk for Surgery and Patient NOT seen in Pre Admission Testing Consults Requested none ASA ASA3 Proposed Anesthesia Anesthesia Type: MAC Risk / Benefits Reviewed With: PT / POA / Parent / Guardian, Accepts Plan and Informed Consent Obtained History Surgery Operation Date: 10/21/22 07:15 Proposed Procedures p Cardioversion Home Theatre Technician w/Anesthesia - Dillon Cotton MD s Transesophageal Echo/cardioversion w/Anesthesia - Dillon Cotton MD Height/Weight Height: 5 ft 10 in Weight: 109 kg Allergies Allergy/AdvReac Type Severity Reaction Status Date / Time shellfish derived Allergy Severe throat Verified 10/20/22 09:54 swelling adhesive Allergy Mild TAPE=RASH Verified 10/20/22 09:54 acetaminophen Allergy Unknown Verified 10/20/22 09:54 doxazosin Allergy Unknown Verified 10/20/22 09:54 oxycodone Allergy Unknown Unknown Verified 10/20/22 09:54 shrimp Allergy Unknown Unknown rxn Verified 10/20/22 09:54 codeine AdvReac Intermediate HALLUCINATI Verified 10/20/22 09:54 ONS diltiazem [From Cardizem] AdvReac Intermediate GI upset Verified 10/20/22 09:54 felodipine [From Plendil] AdvReac Intermediate edema Verified 10/20/22 09:54 heparin AdvReac Intermediate INEFFECTIVE Verified 10/20/22 09:54 zolpidem AdvReac Intermediate hallucinati Verified 10/20/22 09:54 ng diphenhydramine AdvReac Mild jittery Verified 10/20/22 09:54 duloxetine AdvReac Verified 10/20/22 09:54 Medications Home Medications Medication Instructions Recorded Confirmed Last Taken amlodipine 5 mg tablet 5 mg PO DAILY #1 tab 08/02/19 10/20/22 10/20/22 08:00 aspirin 81 mg tablet,delayed 81 mg PO DAILY 08/06/19 10/20/22 10/20/22 08:00 release (Adult Aspirin Regimen) lactobacillus combination no.8 3 3,000 mmu cells PO DAILY 08/06/19 10/20/22 10/20/22 08:00 billion cell capsule (Adult Probiotic) rosuvastatin 40 mg tablet (Crestor) 40 mg PO DAILY 08/06/19 10/20/22 10/20/22 08:00 furosemide 40 mg tablet (Lasix) 60 mg PO DAILY 09/30/19 10/20/22 10/20/22 08:00 nystatin-triamcinolone 100,000 1 applic topical BID PRN irritation 09/08/21 10/20/22 Unknown unit/g-0.1 % topical cream semaglutide 1 mg/dose (4 mg/3 mL) 1 mg (0.75 mL) subcut .COMPLEX #9 10/25/21 10/20/22 10/14/22 subcutaneous pen injector (Ozempic) mL tamsulosin 0.4 mg capsule 0.4 mg PO DAILY #90 caps 01/03/22 10/20/22 10/20/22 08:00 CPAP Supplies #1 ea 02/17/22 10/20/22 Unknown levothyroxine 25 mcg tablet See Rx Instructions .Route 03/30/22 10/20/22 10/20/22 08:00 .COMPLEX #90 tabs mecobalamin (vitamin B12) 1,000 2,000 mcg PO DAILY 04/19/22 10/20/22 10/20/22 08:00 mcg chewable tablet nitroglycerin 0.3 mg sublingual 0.3 mg sublingual Q5M PRN Chest 04/19/22 10/20/22 Unknown tablet Pain insulin degludec 200 unit/mL (3 90 unit (0.45 mL) subcut DAILY #45 05/17/22 10/20/22 10/20/22 08:00 mL) subcutaneous pen (Tresiba mL FlexTouch U-200 insulin) pregabalin 75 mg capsule 75 mg PO BID #180 caps 05/19/22 10/20/22 10/20/22 08:00 insulin aspart U-100 100 unit/mL See Rx Instructions .Route 06/22/22 10/20/22 10/20/22 08:00 (3 mL) subcutaneous pen (Novolog .COMPLEX #45 mL Flexpen U-100 Insulin aspart) OneTouch Verio test strips (blood #400 strips 07/13/22 10/20/22 Unknown sugar diagnostic) OneTouch Delica Lancets 33 gauge #400 ea 08/08/22 10/20/22 Unknown (lancets) valsartan 80 mg tablet 80 mg PO DAILY #90 tabs 10/04/22 10/20/22 10/20/22 08:00 metoprolol tartrate 25 mg tablet See Rx Instructions .Route 10/05/22 10/20/22 10/20/22 08:00 .COMPLEX #180 tabs pen needle, diabetic 31 gauge x #400 ea 10/10/22 10/20/22 Unknown 5/16" (BD Ultra-Fine Short Pen Needle) cyanocobalamin (vitamin B-12) 1,000 mcg PO DAILY 10/20/22 10/20/22 10/20/22 08:00 1,000 mcg capsule omeprazole 20 mg capsule,delayed 20 mg PO QPM 10/20/22 10/20/22 Unknown release Active Medications Generic Name Dose Route Start Last Admin Trade Name Freq PRN Reason Stop Dose Admin Apixaban 2.5 mg 10/20/22 17:00 10/20/22 17:45 Apixaban 2.5 Mg Tab PO 11/19/22 16:59 2.5 mg BID EDY Administration Insulin Aspart 0 units 10/20/22 16:30 10/20/22 21:00 Insulin Aspart Per Unit SC 11/19/22 16:29 Not Given ACHS EDY Levothyroxine Sodium 25 mcg 10/21/22 06:30 10/21/22 06:05 Levothyroxine Sodium 25 Mcg Tablet PO 11/20/22 06:29 25 mcg DAILYBB EDY Administration Pantoprazole Sodium 40 mg 10/20/22 21:00 10/20/22 21:00 Pantoprazole 40 Mg Tab PO 11/19/22 20:59 40 mg QPM EDY Administration Protocol Pregabalin 75 mg 10/20/22 21:00 10/20/22 21:00 Pregabalin 75 Mg Cap PO 11/19/22 20:59 75 mg BID EDY Administration Past Medical History Medical History (Updated 10/20/22 @ 13:09 by Fanny Lea MD) (HFpEF) heart failure with preserved ejection fraction Carotid artery stenosis Chronic kidney disease, stage III (moderate) Coronary artery disease Followed by Cardiology, Dr. Delvalle Diabetes mellitus, type II Followed by Endocrinology Diabetic peripheral neuropathy associated with type 2 diabetes mellitus GERD (gastroesophageal reflux disease) History of Mohs micrographic surgery for skin cancer History of squamous cell carcinoma of skin Hyperlipidemia Hypertension Hypothyroidism Low back pain Moderate obstructive sleep apnea Multiple thyroid nodules (~2014) previous eval by Endo and repeat US Osteopenia Pancreatitis Peripheral vascular disease Prostate nodule Pulmonary hypertension Vitamin B12 deficiency Vitamin D deficiency Exercise / Class Metabolic Activity II 4-5 Yardwork/Stairs/Walk up hill Past Family History Family History Mother Diabetes Myocardial infarction Unknown Coronary heart disease Father Myocardial infarction Denies family history of Ovarian cancer Prostate cancer Breast cancer Lung cancer Colorectal cancer Past Surgical History Surgical History H/O colonoscopy History of coronary artery stent placement History of Mohs 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 January 2021 S/P CABG (coronary artery bypass graft) (~2014) S/P cholecystectomy Status post incision and drainage Past Anesthesia History No Hx of Anesthesia Complications and No Family Hx of Anesthesia Complications History of PONV No Hx of PONV and No Hx of Motion Sickness Social History Smoking Status: Former smoker Smoking cigarettes per day: 1 pack a day Hx Alcohol Use: Yes Alcohol type: beer alcohol intake frequency: a few times a month Hx Substance Use: No substance use type: does not use Physical Exam Vital Signs Last Vital Signs Temp 36.8 C 10/21/22 04:00 Pulse 81 10/21/22 07:11 Resp 16 10/21/22 07:11 BP 137/77 10/21/22 07:11 Pulse Ox 92 10/21/22 07:11 O2 Del Method 10/21/22 07:11 O2 Flow Rate 0 10/20/22 19:32 FiO2 21 10/21/22 02:51 Constitutional + obese ENMT Mouth: no dentition abnormality Thyromental Distance: > or= 3.5 Finger Breadths Mallampati Class: II Neck normal visual inspection Respiratory normal respiratory effort Auscultation: lungs clear to auscultation bilaterally Cardiovascular Rate/Rhythm: regular rate; + abnormal rhythm (irregular) Psychiatric Orientation: alert Testing Laboratory Results 10/21/22 05:35 10/21/22 05:35 10/20/22 19:48 POC Glucose 120 H
--- NOTE | 2022-10-21 08:08 | Cardioversion ---
Date of Service October 21, 2022 PG Electrical Cardioversion Rp Electrical Cardioversion Report Procedure: DC cardioversion (elective) Referring/ordering provider: Dr. Delvalle Primary dry cell assembly machine tender: Dr. Delvalle Indication: Symptomatic atrial fibrillation Anticoagulation: Eliquis Consent: Informed written consent was obtained prior to the procedure. Sedation: Provided by anesthesiology. Timeout: Performed Procedural details: Transesophageal echo was performed and there was no visualized thrombus within the left atrial appendage. Following BRAVO, 150 J were delivered in a synchronized fashion which successfully converted atrial fibrillation to sinus bradycardia. There were several sinus complexes and then what appeared to be junctional bradycardia before once again regaining sinus bradycardia. Patient tolerated the procedure well without known complications at the time of this note. Plan: 1. Continue therapeutic anticoagulation without interruption for at least 4 weeks following cardioversion. Although indefinite anticoagulation may be indicated. 2. Ongoing care to be determined by his primary dry cell assembly machine tender, Dr. Delvalle. 3. Patient's , Moni Evans, was up dated via telephone of the procedure. 4. Primary hospitalist, Dr. Lea, notified. Coding Level of Care Code Cardioversion, elective Additional Codes Electrical Cardioversion Report ([id number])
[2022-10-21] MEDS ORDERED: TAMSULOSIN HCL 0.4 MG CAP PO SCH (09:00)
[2022-10-21] MEDS ORDERED: LANTUS PER UNIT CHARGE SQ SCH (09:00)
[2022-10-21] MEDS ORDERED: FUROSEMIDE 20 MG TAB PO SCH (09:00)
[2022-10-21] MEDS ORDERED: AMIODARONE 200 MG TAB PO SCH (09:00)
[2022-10-21] MEDS ORDERED: amLODIPine BESYLATE 5 MG TAB PO SCH (09:00)
[2022-10-21] MEDS ORDERED: ASPIRIN 81 MG ECTAB PO SCH (09:00)
[2022-10-21] MEDS ORDERED: VALSARTAN 80 MG TAB PO SCH (09:00)
[2022-10-21] MEDS ORDERED: ROSUVASTATIN CALCIUM 20 MG TAB PO SCH (09:00)
[2022-10-21] MEDS ORDERED: CYANOCOBALAMIN (B-12) 500 MCG TABLET PO SCH (09:00)
--- NOTE | 2022-10-21 09:08 | Cardiology Consultation ---
Date of Consultation October 21, 2022 History of Present Illness Reason for Consultation: Shortness of breath, diastolic heart failure, new onset atrial fibrillation Attending Physician: Fanny Lea MD History of Present Illness Sage has had a longstanding history of cardiovascular disease. He checks his blood pressure every day he notes that his heart rate is normally in the high 50s to low 60s in sinus rhythm. About 9 days ago he noted that his heart rate was faster on his blood pressure cuff than usual. He did not think anything about it. Over the last 9 days he has had increasing shortness of breath and fatigue and some worsening heart failure symptoms along with worsening lower extremity edema. Yesterday he saw his primary care provider who noted that he was in atrial fibrillation and he came to the emergency room. He also noted some chest tightness and felt like he just could not take a deep breath. He did not have any palpitations or fluttering. His did note that he looked a little more parra than usual. He denies any bleeding or bruising. Denies any falls or syncopal episodes. His appetite has been stable. Through consultation over the phone with the primary service as well as not any cardiology we arranged for BRAVO/cardioversion to restore sinus rhythm and his atrial kick. This morning he is back in sinus rhythm after his BRAVO. He feels well. Additionally he received 20 mg of IV Lasix which is helped increase his diuresis. The rest of a complete her systems is otherwise negative Allergies Allergy/AdvReac Type Severity Reaction Status Date / Time shellfish derived Allergy Severe throat Verified 10/20/22 09:54 swelling adhesive Allergy Mild TAPE=RASH Verified 10/20/22 09:54 acetaminophen Allergy Unknown Verified 10/20/22 09:54 doxazosin Allergy Unknown Verified 10/20/22 09:54 oxycodone Allergy Unknown Unknown Verified 10/20/22 09:54 shrimp Allergy Unknown Unknown rxn Verified 10/20/22 09:54 codeine AdvReac Intermediate HALLUCINATI Verified 10/20/22 09:54 ONS diltiazem [From Cardizem] AdvReac Intermediate GI upset Verified 10/20/22 09:54 felodipine [From Plendil] AdvReac Intermediate edema Verified 10/20/22 09:54 heparin AdvReac Intermediate INEFFECTIVE Verified 10/20/22 09:54 zolpidem AdvReac Intermediate hallucinati Verified 10/20/22 09:54 ng diphenhydramine AdvReac Mild jittery Verified 10/20/22 09:54 duloxetine AdvReac Verified 10/20/22 09:54 Home Medications Medication Instructions Recorded Confirmed Type amlodipine 5 mg tablet 5 mg PO DAILY #1 tab 08/02/19 10/20/22 History aspirin 81 mg tablet,delayed 81 mg PO DAILY 08/06/19 10/20/22 History release (Adult Aspirin Regimen) lactobacillus combination no.8 3 3,000 mmu cells PO DAILY 08/06/19 10/20/22 History billion cell capsule (Adult Probiotic) rosuvastatin 40 mg tablet (Crestor) 40 mg PO DAILY 08/06/19 10/20/22 History furosemide 40 mg tablet (Lasix) 60 mg PO DAILY 09/30/19 10/20/22 History nystatin-triamcinolone 100,000 1 applic topical BID PRN irritation 09/08/21 10/20/22 History unit/g-0.1 % topical cream semaglutide 1 mg/dose (4 mg/3 mL) 1 mg (0.75 mL) subcut .COMPLEX #9 10/25/21 10/20/22 Rx subcutaneous pen injector (Ozempic) mL tamsulosin 0.4 mg capsule 0.4 mg PO DAILY #90 caps 01/03/22 10/20/22 Rx CPAP Supplies #1 ea 02/17/22 10/20/22 Rx levothyroxine 25 mcg tablet See Rx Instructions .Route 03/30/22 10/20/22 Rx .COMPLEX #90 tabs mecobalamin (vitamin B12) 1,000 2,000 mcg PO DAILY 04/19/22 10/20/22 History mcg chewable tablet nitroglycerin 0.3 mg sublingual 0.3 mg sublingual Q5M PRN Chest 04/19/22 10/20/22 History tablet Pain insulin degludec 200 unit/mL (3 90 unit (0.45 mL) subcut DAILY #45 05/17/22 10/20/22 Rx mL) subcutaneous pen (Tresiba mL FlexTouch U-200 insulin) pregabalin 75 mg capsule 75 mg PO BID #180 caps 05/19/22 10/20/22 Rx insulin aspart U-100 100 unit/mL See Rx Instructions .Route 06/22/22 10/20/22 Rx (3 mL) subcutaneous pen (Novolog .COMPLEX #45 mL Flexpen U-100 Insulin aspart) OneTouch Verio test strips (blood #400 strips 07/13/22 10/20/22 Rx sugar diagnostic) OneTouch Delica Lancets 33 gauge #400 ea 08/08/22 10/20/22 Rx (lancets) valsartan 80 mg tablet 80 mg PO DAILY #90 tabs 10/04/22 10/20/22 Rx metoprolol tartrate 25 mg tablet See Rx Instructions .Route 10/05/22 10/20/22 Rx .COMPLEX #180 tabs pen needle, diabetic 31 gauge x #400 ea 10/10/22 10/20/22 Rx 5/16" (BD Ultra-Fine Short Pen Needle) cyanocobalamin (vitamin B-12) 1,000 mcg PO DAILY 10/20/22 10/20/22 History 1,000 mcg capsule omeprazole 20 mg capsule,delayed 20 mg PO QPM 10/20/22 10/20/22 History release Patient History Medical History (HFpEF) heart failure with preserved ejection fraction Carotid artery stenosis Chronic kidney disease, stage III (moderate) Coronary artery disease Followed by Cardiology, Dr. Delvalle Diabetes mellitus, type II Followed by Endocrinology Diabetic peripheral neuropathy associated with type 2 diabetes mellitus GERD (gastroesophageal reflux disease) History of Mohs micrographic surgery for skin cancer History of squamous cell carcinoma of skin Hyperlipidemia Hypertension Hypothyroidism Low back pain Moderate obstructive sleep apnea Multiple thyroid nodules (~2014) previous eval by Endo and repeat US Osteopenia Pancreatitis Peripheral vascular disease Prostate nodule Pulmonary hypertension Vitamin B12 deficiency Vitamin D deficiency Surgical History H/O colonoscopy History of coronary artery stent placement History of Mohs 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 January 2021 S/P CABG (coronary artery bypass graft) (~2014) S/P cholecystectomy Status post incision and drainage Family History Mother Diabetes Myocardial infarction Unknown Coronary heart disease Father Myocardial infarction Denies family history of Ovarian cancer Prostate cancer Breast cancer Lung cancer Colorectal cancer Social History Smoking Status: Former smoker Age Quit Using Tobacco: 36; Cigarettes Per Day: 1 pack a day; Second Hand Exposure: No; Hx Alcohol Use: Yes Alcohol type: beer Alcohol Intake Frequency: Monthly or Le ss Alcohol Intake Frequency Comment: social Hx Substance Use: No Preferred Language: Maltese Communication Ability: Effective Visual Impairment: Limited Hearing Ability: Normal Supervisor Lime Required: No Beliefs That Will Affect Care: None marital status: Current Living Situation: Spouse current occupational status: retired How many Children do You have: 2 Other Information That Helps Us Care for You: No Feels Safe at Home: Yes Safety Concerns: Feels Safe At This Time Childhood Exposure to Second-Hand Smoke: Yes caffeine: Yes (cup of coffee daily ) Dental Care, Regularly: Yes Physical Activity Frequency: Daily Physical Activity Frequency Comment: walk Seatbelt Use: always Sunscreen Use: Yes Results & Data ([facility]) Vital Signs (Past 12 Hours) Vital Signs Temp Pulse Pulse Resp BP Pulse Ox O2 Del Method 10/21/22 08:28 36.5 C 57 L 18 110/61 91 Room Air 10/21/22 08:15 57 L 15 99/56 L 92 Room Air 10/21/22 08:00 60 15 100/58 L 90 Room Air 10/21/22 07:11 81 16 137/77 92 Room Air 10/21/22 04:00 36.8 C 69 18 146/62 H 94 Room Air 10/21/22 02:51 63 15 96 10/20/22 22:10 65 10/20/22 23:10 17 95 10/20/22 23:12 36.6 C 70 18 136/75 97 Room Air FiO2 10/21/22 08:28 10/21/22 08:15 10/21/22 08:00 10/21/22 07:11 10/21/22 04:00 10/21/22 02:51 21 10/20/22 22:10 10/20/22 23:10 21 10/20/22 23:12 He is awake alert and oriented x3 he is in no acute distress he is answering questions appropriately. He notes a little bit of fogginess after the cardioversion H EENT: 2+ carotid upstrokes he has bilateral carotid bruits Lungs: Faint crackles in the bases bilaterally no rhonchi or wheezing Heart: Regular rate and rhythm no appreciable murmurs rubs or gallops Abdomen: Firm chronically distended positive bowel sounds nontender extremities no clubbing cyanosis he has trace bilateral lower extremity edema Psychiatric his affect appeared appropriate Impressions: 1. Acute on chronic diastolic heart failure secondary to heart failure with preserved ejection fraction 2. Recurrent atrial fibrillation status post BRAVO cardioversion with alevism of sinus rhythm 3. Postoperative A. fib after his coronary bypass grafting 4. Coronary disease status post CABG x3 in 2014 5. Diffuse vascular disease including bilateral carotid disease and left subclavian disease 6. Sinus bradycardia at baseline on low-dose beta-blockers 7. Chronic kidney disease with a baseline creatinine between 1.6 and 1.8 8. History of severe pulmonary hypertension most recently with mild pulmonary hypertension As was discussed with all the services I do believe that the loss of his atrial kick with his stiff left ventricle lead to worsening heart failure and his chest pain and shortness of breath. My hope is with alevism of sinus rhythm today that we can avoid worsening heart failure. The challenges that he is relatively bradycardic in sinus rhythm on a small dose of beta-sav. Given the fact we know he does not tolerate atrial fibrillation very well and rather easily goes into heart failure I would consider adding low-dose amiodarone 200 mg daily to his medical regimen and stopping his beta-sav completely. I will not load him with amiodarone but rather just start him on 200 mg daily. I have asked that he monitor his heart rate at home twice a day. As long as his heart rate is above 50 and he feels okay we will need to change his medical regimen. If he has symptomatic bradycardia then ultimately he may need a pacemaker due to sinus node dysfunction. In addition he needs to be discharged on anticoagulation long-term. Given his age and his renal function Eliquis 2-1/2 mg twice a day is an appropriate dose. It seems that he had a good diuresis yesterday and can be discharged on his normal dose of furosemide 60 mg daily. He wants to go home today. I discussed with him I would keep him at least till this afternoon and allow him to walk around and see what his heart rate does after single dose of amiodarone if he is not excessively bradycardic or lightheaded or dizzy then he can be discharged home with close monitoring of his heart rate and blood pressure.
--- NOTE | 2022-10-21 09:09 | XCELERA ---
[id number]
[2022-10-21] MEDS: APIXABAN 2.5 MG TAB PO SCH (09:10)
[2022-10-21] MEDS: PREGABALIN 75 MG CAP PO SCH (09:15)
[2022-10-21] MEDS: INSULIN ASPART PER UNIT SC SCH ×2 (09:15→12:21)
--- NOTE | 2022-10-21 12:26 | Discharge Summary ---
Date of Service October 21, 2022 Admission HPI Per Admitting Provider This patient is an 82-year-old male with a history of CAD s/p CABG, post CABG lone atrial fibrillation, DM2 with neuropathy, BPH, HTN, hypothyroidism, CKD stage III, hyperlipidemia, right-sided heart failure, pulmonary hypertension, HFpEF, high-grade left subclavian artery stenosis-asymptomatic, and moderate bilateral ANGELIKA, GERD, obesity, and LLE DVT, who presents to the ER with exertional dyspnea and perhaps some mild pressure in the chest for 10 days. He is also noticed his heart rate is higher than usual for the last 10 days with rates in the 80s. Then, this morning he had increased amount of chest tightness while using his snowblower that went away with rest. He took 2 baby aspirin at home and came to the ER. The chest pressure is improved and was resolved then occasionally comes back as a mild tightness but goes away spontaneously. He denies lightheadedness. He has had some weight gain of about 4 pounds over the last month and some increased leg swelling. He was seen at his PCP office who noted him to be in atrial fibrillation with rates controlled but given the unstable angina type picture, he was sent to the ER for further evaluation. His troponin was in the normal range at 18, ECG s howed A. fib, rate controlled, no ischemic changes. His creatinine was at baseline at 1.6, otherwise labs fairly unremarkable. Chest x-ray negative. His vital signs were fairly unremarkable. He will be admitted for further cardiac evaluation given unstable angina and new onset atrial fibrillation. Principal Diagnosis Chest pain, Atrial fibrillation Discharge Exam Constitutional WD/WN, vitals as above Eyes + anicteric sclerae Neck trachea midline, no thyromegaly Respiratory normal respiratory effort, lungs clear to auscultation Cardiovascular Rate/Rhythm: regular rate and regular rhythm Heart Sounds: no murmur Extremities: + edema (only trace edema legs, improved) Chest (Breasts) Chest: normal inspection of chest Gastrointestinal (Abdomen) normal bowel sounds, soft, nontender, no hepatosplenomegaly (Obese abdomen) Musculoskeletal Extremities: extremities normal to inspection; no cyanosis and no clubbing Skin no rashes, warm and dry (Except chronic venous stasis changes left greater than right legs) Neurologic moves all extremities and awake; no focal motor deficits Psychiatric A+Ox3, euthymic affect Discharge Data Allergies Allergy/AdvReac Type Severity Reaction Status Date / Time shellfish derived Allergy Severe throat Verified 10/20/22 09:54 swelling adhesive Allergy Mild TAPE=RASH Verified 10/20/22 09:54 acetaminophen Allergy Unknown Verified 10/20/22 09:54 doxazosin Allergy Unknown Verified 10/20/22 09:54 oxycodone Allergy Unknown Unknown Verified 10/20/22 09:54 shrimp Allergy Unknown Unknown rxn Verified 10/20/22 09:54 codeine AdvReac Intermediate HALLUCINATI Verified 10/20/22 09:54 ONS diltiazem [From Cardizem] AdvReac Intermediate GI upset Verified 10/20/22 09:54 felodipine [From Plendil] AdvReac Intermediate edema Verified 10/20/22 09:54 heparin AdvReac Intermediate INEFFECTIVE Verified 10/20/22 09:54 zolpidem AdvReac Intermediate hallucinati Verified 10/20/22 09:54 ng diphenhydramine AdvReac Mild jittery Verified 10/20/22 09:54 duloxetine AdvReac Verified 10/20/22 09:54 Consultations 10/20/22 12:43 ED Decision to Admit Stat 10/20/22 16:22 Consult Anesthesiology Routine Consult Cardiology Routine Procedures Performed Operation Date: 10/21/22 07:15 Actual Procedures p Echo Transesophageal - Dillon Cotton MD s Doppler Echo Limited/Follow Up - Dillon Cotton MD s Echo Color Flow - Dillon Cotton MD Hospital Course (1) Chest pain, exertional: Presents with unstable angina with exertional chest pain new over the last few weeks With a history of three-vessel CABG Initial troponin negative, ECG without ischemic changes but and new onset atrial fibrillation High risk for recurrent disease -Admitted to PCU and had BRAVO with cardioversion the next AM which was successful at converting Afib back to NSR Chest tightness and ROBLES resolved after this. He ambulated numerous times around the martinez prior to discharge. He also was given one extra dose of lasix IV on admission and expect his volume status will improve now that he is in NSR. -Consulted his undercollar maker, Dr. Harshal Delvalle, and discussed whether to pursue nuclear stress test versus cardiac catheterization-I did discuss his care with cardiology who feels this chest pressure may be related to the atrial fibrillation -serial troponin negative x 3 -ECHO with preserved EF -Continue home aspirin 81 mg daily, rosuvastatin 40 mg daily, valsartan, but will DISCONTINUE metoprolol, add amiodarone 200mg po daily as per Cardiology -Nitroglycerin as needed for recurrent chest pain -starting Eliquis for atrial fibrillation as below (2) New onset atrial fibrillation: Has a history of postoperative atrial fibrillation after CABG in 2014 and previously on amiodarone therapy without any recurrence since that time until now -Rates are controlled here, now cardioverted as above - start anticoagulation- started Eliquis 2.5 Mg p.o. twice daily given age and renal function -advised to monitor HR and BP bid after discharge f/u outpt with Cardio (3) (HFpEF) heart failure with preserved ejection fraction: Last echocardiogram at [facility] cardiology in 08/2022 with preserved EF, right-sided heart failure, mild pulmonary hypertension, grade 3 diastolic dysfunction Check proBNP-mildly elevated, with peripheral edema, ROBLES--> gave IV lasix 20mg x 1 on admission and much improved Also converted to NSR as above which improves his diastolic CHF Weight is up 2 kg since several months ago and patient reports a weight gain of 4 pounds just in the last few weeks and some increased lower extremity edema Could have some mild acute on chronic HFpEF given new onset atrial fibrillation for the last few weeks Continue current diuretics with Lasix 60 mg once daily by mouth on discharge (4) Hypertension: Blood pressures are controlled Continue home valsartan, amlodipine, Lasix, but dc home metoprolol as above as starting amiodarone and want to avoid bradycardia (5) Coronary artery disease: S/p three-vessel CABG in 2014 Continue meds as above (6) Type 2 diabetes mellitus with insulin therapy: Hemoglobin A1c 7.9% in 08/2022 On Ozempic at home in addition to insulin Accu-Cheks and diabetic diet (7) Chronic kidney disease, stage III (moderate): Creatinine at baseline at 1.6 and remained there -Avoid nephrotoxins -renally dose meds when appropriate (8) Hypothyroidism: Last TSH normal in 08/2021 Repeat TSH given atrial fibrillation is still normal here (9) GERD (gastroesophageal reflux disease): Continue PPI (10) Moderate obstructive sleep apnea: He has not been using his CPAP due to discomfort for the last few months but is now agreeable to using it as he is in atrial fibrillation continue CPAP at home-advised of this (11) Obesity: BMI 35.3 Encourage weight loss Is on Ozempic now (12) Vitamin B12 deficiency: Continue home B12 (13) Pulmonary hypertension: Previously severe, now noted to be mild as per cardiology With right-sided heart failure Continue diuretics, treatment for CHARLES (14) Diabetic peripheral neuropathy associated with type 2 diabetes mellitus: Continue pregabalin (15) Carotid artery stenosis: Continue aspirin and statin Follows with cardiology Also with left subclavian artery stenosis asymptomatic-follows with cardiology (16) Hyperlipidemia: Continue statin Plan DVT prophylaxis-Eliquis Disposition-dc to home, doing very well Full code Total Time Total Time Spent Total Time Spent (In Minutes): 35 min Discharge Plan Discharge Items Patient Disposition: Home - Self-Care Reason For Visit: CHEST PAIN, ATRIAL FIBRILLATION Discharge Diagnosis: Chest pain, atrial fibrillation Condition on Discharge: Good Activity: Resume your previous activity Non-emergency contact: Primary Care Provider and Confectionery Cooker Call non-emergency contact if: you have any medication questions and your symptoms worsen Follow-up/Referrals: Harshal Delvalle DO [Physician] - (Please follow up within 2 weeks.) Allen Villalpando DO [Primary Care Provider] - (Please follow up within 1-2 weeks.) Diet: Carb Consistent or DM2, Heart Healthy and Low Sodium (2gm) Fluids: 1800ml (7 cups) Addtl Attending Provider Instructions: You were admitted with an irregular heart rhythm called atrial fibrillation. This was likely causing you to have the chest tightness and shortness of breath. You had a procedure to shock your heart back to a normal rhythm which was successful. Your metoprolol was STOPPED and instead you were started on amiodarone to keep you from going back into the abnormal heart rhythm. Please check your heart rate and blood pressure twice a day and monitor for irregular beats or high heart rates. If this happens, please contact Dr. Delvalle' s office. You were also started on a blood thinner called Eliquis to prevent stroke that can happen as a result of having atrial fibrillation. Follow up with Dr. Delvalle and Dr. Villalpando within 2 weeks after discharge. ACTIVITY RECOMMENDATIONS: Resume activities as tolerated with no limitations unless specified. __ No lifting over _10_ pounds for 24 hours. __ Do not engage in vigorous exercise, sexual activity, or sports for 24 hours. __ Do not drive or operate any motorized equipment for 24 hours. __ You may return to work/school tomorrow. __ Nothing to eat or drink until gag reflex returns. __ No HOT or WARM liquids for _8_ hours. __ Avoid "scratchy" foods such as potato chips or pretzels for 24 hours following procedure. SPECIAL CARE: If you experience coughing up or vomiting of blood, contact [address] Delvalle in 1-2 weeks. Pending Studies at Discharge: No Stand-Alone Forms: My [facility], Smoking Cessation Medications and DC Order Prescriptions: New amiodarone 200 mg Tablet 200 mg PO QAM Qty: 30 0RF Eliquis 2.5 mg Tablet 2.5 mg PO BID Qty: 60 0RF Continued tamsulosin 0.4 mg capsule 0.4 mg PO DAILY Qty: 90 3RF Rx Instructions: TAKE 1 CAPSULE DAILY. (DME) CPAP Supplies Misc See Rx Instructions .Route Qty: 1 0RF Rx Instructions: As directed levothyroxine 25 mcg tablet See Rx Instructions .ROUTE .COMPLEX Qty: 90 3RF Dose Instruction: TAKE 1 TABLET BY MOUTH EVERY DAY Rx Instructions: TAKE 1 TABLET BY MOUTH EVERY DAY Tresiba FlexTouch U-200 200 unit/mL (3 mL) insulin pen 90 unit SQ DAILY Qty: 45 1RF Novolog Flexpen U-100 Insulin 100 unit/mL (3 mL) insulin pen See Rx Instructions .ROUTE .COMPLEX Qty: 45 3RF Rx Instructions: sliding scale (DME) OneTouch Verio test strips Strip See Rx Instructions .ROUTE .COMPLEX Qty: 400 3RF Dose Instruction: TEST BLOOD SUGAR 4 TIMES DAILY Rx Instructions: TEST BLOOD SUGAR 4 TIMES DAILY (DME) lancets [OneTouch Delica Lancets] 33 gauge misc See Rx Instructions .ROUTE .MEDSUPPLY Qty: 400 1RF Rx Instructions: test 4 times daily valsartan 80 mg tablet 80 mg PO DAILY Qty: 90 3RF (DME) pen needle, diabetic [BD Ultra-Fine Short Pen Needle] 31 gauge x 5/16" needle See Rx Instructions .ROUTE .MEDSUPPLY Qty: 400 3RF Rx Instructions: Use four times daily with insulin amlodipine 5 mg tablet 5 mg PO DAILY Qty: 1 aspirin [Adult Aspirin Regimen] 81 mg tablet,delayed release (DR/EC) 81 mg PO DAILY rosuvastatin [Crestor] 40 mg tablet 40 mg PO DAILY Adult Probiotic 3 billion cell capsule 3,000 mmu cells PO DAILY furosemide [Lasix] 40 mg tablet 60 mg PO DAILY Ozempic 1 mg/dose (4 mg/3 mL) pen injector 1 mg subcut .COMPLEX Qty: 9 3RF Rx Instructions: 1 mg subcut once a week; pregabalin 75 mg capsule 75 mg PO BID Qty: 180 1RF nystatin-triamcinolone 100,000-0.1 unit/g-% cream 1 applic topical BID PRN (Reason: irritation) mecobalamin (vitamin B12) 1,000 mcg tablet,chewable 2,000 mcg PO DAILY nitroglycerin 0.3 mg tablet, sublingual 0.3 mg sublingual Q5M PRN (Reason: Chest Pain) Rx Instructions: do not exceed 3 doses per episode cyanocobalamin (vitamin B-12) 1,000 mcg capsule 1,000 mcg PO DAILY omeprazole 20 mg capsule,delayed release(DR/EC) 20 mg PO QPM Discontinued metoprolol tartrate 25 mg tablet See Rx Instructions .ROUTE .COMPLEX Qty: 180 3RF Dose Instruction: TAKE 1 TABLET BY MOUTH TWICE A DAY Rx Instructions: TAKE 1 TABLET BY MOUTH TWICE A DAY Discharge Orders: Discharge Order (Routine); Ordered 10/21/22 Ordered By: Fanny Chauhan/Other Patient Handouts: Managing Type 2 Diabetes Admission Data Admit Date/Time: 10/20/22 13:43 Attending Provider: Fanny Lea Admit Provider: Fanny Lea Primary Care Provider: Allen Villalpando Other Providers: Fanny Lea ; Dilshad Drake ; Harshal Delvalle Coding Level of Care Code D/C DAY MANAGEMENT >30 MINS Diagnoses Chest pain, exertional R07.9 New onset atrial fibrillation I48.91 (HFpEF) heart failure with preserved ejection fraction I50.30 Hypertension I10 Hypertension type: essential hypertension Coronary artery disease I25.10 Coronary Disease-Associated Artery/Lesion type: [place] artery [place] vs. transplanted heart: [place] heart Associated angina: unspecified whether angina present Type 2 diabetes mellitus with insulin therapy E11.9; Z79.4 Chronic kidney disease, stage III (moderate) N18.3 Hypothyroidism E03.9 Hypothyroidism type: unspecified GERD (gastroesophageal reflux disease) K21.9 Moderate obstructive sleep apnea G47.33 Obesity E66.01; Z68.36 Obesity type: due to excess calories Obesity classification: adult class 2 (BMI 35 - 39.9) Serious obesity comorbidity presence: with serious comorbidity Body mass index: BMI 36.0-36.9 Vitamin B12 deficiency E53.8 Pulmonary hypertension I27.20 Diabetic peripheral neuropathy associated with type 2 diabetes mellitus E11.42 Carotid artery stenosis I65.29 Hyperlipidemia E78.2 Hyperlipidemia type: mixed hyperlipidemia
--- NOTE | 2022-10-22 06:21 | Electrocardiogram Report ---
Test Reason : Blood Pressure : / mmHG Vent. Rate : 075 BPM Atrial Rate : 083 BPM P-R Int : 000 ms QRS Dur : 096 ms QT Int : 364 ms P-R-T Axes : 000 -37 022 degrees QTc Int : 406 ms Atrial fibrillation Left axis deviation Minimal voltage criteria for LVH, may be normal variant Abnormal ECG When compared with ECG of 13-AUG-2015 06:20, Atrial fibrillation has replaced Sinus rhythm Confirmed by Dillon Cotton ([id number]) on 10/22/2022 6:21:03 AM Referred By: Allen Villalpando Confirmed By:Dillon Cotton
--- NOTE | 2022-10-22 06:53 | Electrocardiogram Report ---
Test Reason : Blood Pressure : / mmHG Vent. Rate : 071 BPM Atrial Rate : 208 BPM P-R Int : 000 ms QRS Dur : 096 ms QT Int : 396 ms P-R-T Axes : 000 -38 010 degrees QTc Int : 430 ms Atrial fibrillation Left axis deviation Minimal voltage criteria for LVH, may be normal variant Poor R wave progression, consider anterior WA vs. lead placement vs. LVH Abnormal ECG When compared with ECG of 20-OCT-2022 11:26, No significant change was found Confirmed by Dillon Cotton ([id number]) on 10/22/2022 6:52:46 AM Referred By: Allen Villalpando Confirmed By:Dillon Cotton
--- NOTE | 2022-10-22 06:56 | Electrocardiogram Report ---
Test Reason : Blood Pressure : / mmHG Vent. Rate : 055 BPM Atrial Rate : 055 BPM P-R Int : 166 ms QRS Dur : 104 ms QT Int : 410 ms P-R-T Axes : 054 -38 019 degrees QTc Int : 392 ms Sinus bradycardia with sinus arrhythmia Left axis deviation Minimal voltage criteria for LVH, may be normal variant ( R in aVL ) Nonspecific T wave abnormality Abnormal ECG When compared with ECG of 21-OCT-2022 05:01, Sinus rhythm has replaced Atrial fibrillation Confirmed by Dillon Cotton ([id number]) on 10/22/2022 6:56:37 AM Referred By: Allen Villalpando Confirmed By:Dillon Cotton
== END 2022-10-21 13:19 | disposition home or self-care (01) | DRG 308 ==
LOC: ED 11:16 → EDINP 13:43 → 4W 18:18

== ENCOUNTER 2023-04-06 12:45 | Observation (INO) ==
[2023-04-06] MEDS ORDERED: LIDOCAINE 1% LOCAL 20 ML VIAL ONE (13:01)
[2023-04-06] MEDS ORDERED: BUPIVACAINE 0.25% PF 30 ML VIAL ONE (13:01)
[2023-04-06] MEDS ORDERED: WATER, STERILE FOR INJ 10 ML VIAL ONE (13:01)
[2023-04-06] MEDS ORDERED: VANCOMYCIN HCL 1000MG/20ML VIAL ONE (13:01)
--- NOTE | 2023-04-06 13:41 | History & Physical Bridge Note ---
Date of Service April 06, 2023 History & Physical Bridge Note I have examined the patient, reviewed the History & Physical and in the interval since the performance of the History & Physical I have noted the following changes of clinical significance: no changes noted
--- NOTE | 2023-04-06 13:43 | Pre Anesthesia Assessment ---
Date of Service April 06, 2023 Pre Sedation Assessment Vital Signs Temp Pulse Resp BP Pulse Ox O2 Del Method 04/06/23 13:14 36.7 C 55 L 14 159/70 H 98 Room Air Cardiovascular + regular rhythm and + bradycardic Respiratory + respiratory effort normal Pre-Sedation Airway Assessment Smoking Status: Former smoker Hx Sleep Apnea: Yes Hx Difficult Intubation: No Short, Thick Neck: Yes Thyromental Distance: > or= 3.5 Finger Breadths Oral Cavity: + Loose Teeth Mallampati Class: III ASA: ASA3 NPO Status Date of Last Intake of Fluids: 04/05/23 Time of Last Intake of Fluids: 23:00 Date of Last Intake of Solid Food: 04/05/23 Time of Last Intake of Solid Foods: 23:00 Procedure Planning Contraindications for Sedation: none Current Medications Reviewed: Yes Notes The planned sedation has been discussed with the patient. Informed Consent was obtained. I have identified the patient, determined the appropriateness of sedation and have assessed the patient immediately prior to the procedure. All medicine(s) and interventions are by my order.
[2023-04-06] MEDS ORDERED: fentaNYL citrate PF 100 MCG/2 ML VIAL ONE (14:01)
[2023-04-06] MEDS ORDERED: MIDAZOLAM HCL 5 MG/ML 1 ML VIAL ONE (14:01)
[2023-04-06] MEDS ORDERED: ceFAZolin 330 MG/ML 1 GM VIAL ONE (14:09)
--- NOTE | 2023-04-06 15:09 | Electrophysiology Report ---
Date of Service April 06, 2023 Electrophysiology Procedure Electrophysiology Procedure Report Procedure performed: Implantation of dual-chamber permanent pacemaker with left bundle pacing lead Staff religion instructor: Dat Daly MD Indication: patient is an 82-year-old gentleman with a history atrial fibrillation and sinus bradycardia. He has symptoms chronotropic incompetence. He is felt to be a good candidate for permanent pacemaker due to symptomatic non reversible sinus node dysfunction. Dual-chamber device was selected as he is currently in sinus rhythm and was maintain AV synchrony. Procedure in detail: The patient was informed of the risks benefits and alternatives to the intended procedure and she wished to proceed. He was taken to the electrophysiology suite in a fasting state. A preoperative antibiotic had been administered. The patient was monitored electrocardiographically throughout today's procedure and conscious sedation was administered per protocol. The left upper pectoral area is prepped and draped in usual sterile fashion. This area was anesthetized using subcutaneous administration of a xylocaine solution. An incision was made at this site and carried down to the prepectoralis fascia using sharp dissection. Electrocautery was also employed for dissection as well as for hemostasis. A device pocket was fashioned tissues above the pectoralis muscle. Subsequent to this maneuver the left axillary vein was accessed using modified Seldinger technique. A sheath was placed over guidewire and used facilitate passage of the guiding catheter for mapping of the interventricular septum. Once appropriate location was identified the ventricular pacing lead was advanced into the interventricular septum. Adequate sensing threshold parameters were obtained prior to removal of the guiding catheter and sheath. The proximal portion the lead was then sutured to the prepectoralis fascia using nonabsorbable suture. A sheath was placed over the remaining guidewire and used facilitate passage of a pacing lead to the right atrium under fluoroscopic guidance. Adequate sensing threshold parameters were obtained prior to active fixation of this lead to the endocardial surface. Proximal portion lead was then sutured to the prepectoralis fascia using nonabsorbable suture. The device pocket was irrigated with antibiotic solution. The leads were then attached to the device. The device and leads were then placed in the pocket and pocket was closed in 3 layers of absorbable suture. Steri-Strips and sterile dressing were applied. The device was tested noninvasively prior to conclusion the procedure. The patient tolerated procedure well there no immediate complications. Equipment used: New pulse generator: Welt Insole Channeler [employer]. Model number: [id number] serial number [id number] Right atrial lead: Welt Insole Channeler [employer]. Model number: [id number] serial number [id number] Right ventricular lead: Welt Insole Channeler [employer]. Model number: 3830 serial number [id number] Measured data: Right atrial lead: P-waves measured 3 mV. Pacing threshold was 0.9 volts at 0.5 milliseconds with a pacing impedance of 577 Ohms Right ventricular lead: R-waves measured 21 mV. Pacing threshold was 0.7 volts at 0.5 milliseconds with a pacing impedance of 789 Impression: Successful implantation of dual-chamber permanent pacemaker with left bundle pacing lead [facility] Electrophysiology codes Pacing Procedure 1: Pacin Insert/Replace Pacer A & V PG Moderate Sedation Codes Moderate Sedation Codes Procedure 1: Sedation/Anesthesia: 46453 Mod Sedation by the same physician;Init15 Min Child Age 5 & Up Procedure 2: Sedation/Anesthesia: 74768 Mod Sedation by the same physician; Ea [id number] Minutes
--- NOTE | 2023-04-06 15:09 | Post Anesthesia Assessment ---
Date of Service April 06, 2023 Post Sedation Assessment Vital Signs Temp Pulse Resp BP Pulse Ox O2 Del Method 04/06/23 13:14 36.7 C 55 L 14 159/70 H 98 Room Air Recovery Score Activity: Moves 4 extremities Respiration: Deep Breath/Cough Circulation: +/-20% PreAnes Value Consciousness: Fully Awake Oxygen Saturation: > 92% On Room Air Discharge Sedation Level of Care: Fast Track Phase II Post Sedation Plan On clinical assessment, the patient appears to have tolerated the sedation without complications. Patient is recovering as anticipated. Patient will continue to be monitored by nursing and may be discharged when sedation discharge criteria are met per below protocol. Upon Completions of procedure up to 15 minutes continue every 5 minute vital signs and the P.A.R. score; then discharge to a Phase I or Fast Track to Phase II per the following guidelines: * Discharge Patient to appropriate Phase II area if PAR is 8 or greater or return to pre- procedure baseline. The post - procedure orders will be as directed. * If PAR score is less than 8 or not return to pre-procedure baseline then patient will follow Phase I monitoring till PAR is reached for Phase II. The Phase I may be done in procedure room or may call to secure a Phase I area. * If naloxone or flumazenil are used for reversal, hold in Phase I for continued monitoring from when last reversal dose was given for a minimum of 60 minutes or longer pending the nurse and/or physician discretion of patient condition before discharge to Phase II. Please call the Sedation Physician to re-evaluate and complete post-note for discharge to Phase II area. Do NOT discharge from procedure sedation or Phase 1 until post- sedation evaluation note is complete by procedure /sedation MD Sedation Discharge Instructions to be given to the patient at discharge to home.
[2023-04-06] MEDS ORDERED: BENZONATATE 100 MG CAPSULE PO PRN (15:32)
[2023-04-06] MEDS ORDERED: DEXTROSE 50% 50 ML SYRINGE IV PRN (16:44)
[2023-04-06] MEDS ORDERED: CARBOHYDRATES FOR HYPOGLYCEMIA PO PRN (16:44)
[2023-04-06] MEDS ORDERED: GLUCAGON FOR INJ 1 MG VIAL SQ PRN (16:44)
[2023-04-06] MEDS ORDERED: PHARMACY GLYCEMIC MGMT CONSULT PRN (16:44)
[2023-04-06] MEDS ORDERED: GLUCOSE 40% GEL 15 GM TUBE PO PRN (16:44)
[2023-04-06] MEDS ORDERED: GLUCOSE 10 TAB/TUBE PO PRN (16:44)
[2023-04-06] MEDS: traMADol HCL 50 MG TABLET PO PRN (17:55)
[2023-04-06] MEDS: INSULIN ASPART PER UNIT CHARGE SC SCH ×2 (17:55→21:03)
[2023-04-06] MEDS ORDERED: PANTOprazole 40 MG TAB PO SCH (21:00)
[2023-04-06] MEDS: PREGABALIN 75 MG CAP PO SCH (21:02)
[2023-04-06] MEDS: ACETAMINOPHEN 325 MG TAB PO PRN (21:02)
[2023-04-06] MEDS ORDERED: ceFAZolin 2000MG 2,000 MG/15 ML SYR IV ONE (22:00)
[2023-04-07] MEDS: traMADol HCL 50 MG TABLET PO PRN (04:12)
[2023-04-07] MEDS ORDERED: LEVOTHYROXINE SODIUM 50 MCG TABLET PO SCH (06:30)
[2023-04-07] MEDS: ACETAMINOPHEN 325 MG TAB PO PRN (06:31)
--- NOTE | 2023-04-07 07:14 | XRay Report ---
XR chest 2V PA/lateral HISTORY: 82 years-old Male EXACT TIME ORDERED Evaluate for pneumothorax and l status post placement of a left subclavian pacer COMPARISON: 10/20/2022 TECHNIQUE: PA and lateral views of the chest FINDINGS: Cardiac silhouette is enlarged. Trace pleural effusions with mild bibasilar atelectasis. Status post placement of a left subclavian pacer. No postprocedural pneumothorax identified. Pulmonary vascular c ongestion. Prior median sternotomy with CABG. Degenerative changes of the shoulders and spine. Cholec ystectomy. IMPRESSION: Status post placement of a dual lead left subclavian pacer. No postprocedural pneumothora x identified. ACT 112: Negative or not required by law. The above report was generated using voice recognition software. It may contain grammatical, syntax o r spelling errors. Electronically signed by: Michael Ro M.D. 04/07/2023 7:12 AM
--- NOTE | 2023-04-07 08:09 | Cardiology Progress Note ---
Date of Service April 07, 2023 Assessment & Plan Admission and Anticipated Discharge Date Admission Date: April 06, 2023 Results & Data Vital Signs (Past 12 Hours) Vital Signs Temp Pulse Pulse Resp BP Pulse Ox O2 Del Method 04/07/23 03:00 36.6 C 61 21 119/72 93 Room Air 04/06/23 22:00 60 04/06/23 23:05 68 20 96 04/06/23 23:00 36.7 C 64 18 104/66 94 Room Air
[2023-04-07] MEDS: INSULIN ASPART PER UNIT CHARGE SC SCH (08:11)
[2023-04-07] MEDS: PREGABALIN 75 MG CAP PO SCH (08:11)
--- NOTE | 2023-04-07 08:15 | Discharge Summary ---
Date of Service April 07, 2023 Admission HPI Per Admitting Provider The patient is an 82-year-old gentleman with history of coronary disease and paroxysmal atrial fibrillation who presented for implantation of a pacemaker due to symptomatic tachy-manjit syndrome. Principal Diagnosis Tachy-manjit syndrome Discharge Exam On the day of discharge the patient was feeling well There is no evidence of hematoma the device implant site Device interrogation revealed normal function of both atrial ventricular leads Chest x-ray demonstrated stable lead position without evidence of pneumothorax. Discharge Data Allergies Allergy/AdvReac Type Severity Reaction Status Date / Time shellfish derived Allergy Severe throat Verified 04/11/23 09:06 swelling adhesive Allergy Mild TAPE=RASH Verified 04/11/23 09:06 doxazosin Allergy Unknown Unknown Verified 04/11/23 09:06 oxycodone Allergy Unknown Unknown Verified 04/11/23 09:06 shrimp Allergy Unknown Unknown rxn Verified 04/11/23 09:06 codeine AdvReac Intermediate HALLUCINATI Verified 04/11/23 09:06 ONS diltiazem [From Cardizem] AdvReac Intermediate GI upset Verified 04/11/23 09:06 felodipine [From Plendil] AdvReac Intermediate edema Verified 04/11/23 09:06 heparin AdvReac Intermediate INEFFECTIVE Verified 04/11/23 09:06 zolpidem AdvReac Intermediate hallucinati Verified 04/11/23 09:06 ng diphenhydramine AdvReac Mild jittery Verified 04/11/23 09:06 duloxetine AdvReac Unknown Verified 04/11/23 09:06 Procedures Performed Operation Date: 04/06/23 14:00 Actual Procedures p Pacer with A/V Leads (Dual) - Dat Daly MD Ordered Studies 04/06/23 06:45 EP Lab Images for PACS ONCE Hospital Course (1) Tachy-manjit syndrome: Plan 1. Tachy-manjit syndrome: On the day of admission the patient underwent implantation of a dual-chamber Medtronic pacemaker. The procedure was unco mplicated. The following day standard evaluation did not reveal any evidence of complication and was discharged according to schedule. Total Time Total Time Spent Total Time Spent (In Minutes): 20 Discharge Plan Discharge Items Patient Disposition: Home - Self-Care Reason For Visit: CHRONOTROPIC INCOMPETENCE, SINUS NODE DYS,PAF Discharge Diagnosis: sick sinus syndrome Condition on Discharge: Good Activity: Per Instructions section Lifting: No more than 10 pounds Lifting Comment: No lifting left arm above shoulder or behind neck for 6 weeks Bathing: Keep incision dry Bathing Comment: Keep wound dry and steri-strips intact until f/u next week Driving/Machine Use: Resume 1 day after discharge Non-emergency contact: [employer] Super[employer] Call non-emergency contact if: you have any medication questions, your pain is concerning for you, you have a fever, your wound has increased redness and your wound has increased drainage Follow-up/Referrals: Dat Daly MD [Physician] - 04/12/23 4:00 pm (Will RICHMOND Cuellar) Allen Villalpando DO [Primary Care Provider] - 04/11/23 9:15 am (Will see RICHMOND Rodriguez) Diet: Carb Consistent or DM2 and Heart Healthy Addtl Attending Provider Instructions: Do not resume Eliquis until MondayApril 09 Pending Studies at Discharge: No Stand-Alone Forms: My [facility] [employer], Smoking Cessation Medications and DC Order Prescriptions: Continued (DME) CPAP Supplies [facility] [place], [place] See Rx Instructions .Route Qty: 1 0RF Rx Instructions: As directed Novolog FlexPen U-100 Insulin 100 unit/mL (3 mL) insulin pen See Rx Instructions .ROUTE .COMPLEX Qty: 45 3RF Rx Instructions: sliding scale (DME) OneTouch Verio test strips Strip See Rx Instructions .ROUTE .COMPLEX Qty: 400 3RF Dose Instruction: TEST BLOOD SUGAR 4 TIMES DAILY Rx Instructions: TEST BLOOD SUGAR 4 TIMES DAILY (DME) lancets [OneTouch Delica Lancets] [facility] See Rx Instructions .ROUTE .MEDSUPPLY Qty: 400 1RF Rx Instructions: test 4 times daily valsartan 80 mg tablet 80 mg PO DAILY Qty: 90 3RF (DME) pen needle, diabetic [BD Ultra-Fine Short Pen Needle] 31 gauge x 5/16" needle See Rx Instructions .ROUTE .MEDSUPPLY Qty: 400 3RF Rx Instructions: Use four times daily with insulin amiodarone 200 mg tablet 200 mg PO QAM Qty: 90 1RF Eliquis 2.5 mg tablet 2.5 mg PO BID Qty: 180 1RF tamsulosin 0.4 mg capsule 0.4 mg PO DAILY Qty: 90 3RF Rx Instructions: TAKE 1 CAPSULE DAILY. omeprazole 20 mg capsule,delayed release(DR/EC) 20 mg PO QPM Qty: 90 3RF Ozempic 1 mg/dose (4 mg/3 mL) pen injector 1 mg subcut .COMPLEX Qty: 9 3RF Rx Instructions: 1 mg subcut once a week; pregabalin 75 mg capsule 75 mg PO BID Qty: 180 1RF levothyroxine 50 mcg tablet 50 mcg PO DAILY Qty: 30 3RF amlodipine 5 mg tablet 5 mg PO DAILY Qty: 1 aspirin [Adult Aspirin Regimen] 81 mg tablet,delayed release (DR/EC) 81 mg PO DAILY rosuvastatin [Crestor] 40 mg tablet 40 mg PO DAILY Adult Probiotic 3 billion cell capsule 3,000 mmu cells PO DAILY furosemide [Lasix] 40 mg tablet 60 mg PO DAILY mecobalamin (vitamin B12) 1,000 mcg tablet,chewable 2,000 mcg PO DAILY nitroglycerin 0.3 mg tablet, sublingual 0.3 mg sublingual Q5M PRN (Reason: Chest Pain) Rx Instructions: do not exceed 3 doses per episode cyanocobalamin (vitamin B-12) 1,000 mcg capsule 2,000 mcg PO DAILY insulin degludec [Tresiba FlexTouch U-200] 200 unit/mL (3 mL) insulin pen 80 unit SQ DAILY Discharge Orders: Discharge Order (Routine); Ordered 04/07/23 Ordered By: Dat Chauhan/Other Patient Handouts: Pacemakers Admission Data Admit Date/Time: 04/06/23 15:31 Attending Provider: Dat Daly Admit Provider: Dat Daly Primary Care Provider: Allen Villalpando Other Interventions: Discharge Summary Assessment (RN) Last Done: 04/07/23 09:28 Coding Level of Care Code 40852 IN/OBS DISCH 30 MIN/LESS Diagnoses Tachy-manjit syndrome I49.5
[2023-04-07] MEDS ORDERED: VALSARTAN 80 MG TAB PO SCH (09:00)
[2023-04-07] MEDS ORDERED: NON-FORMULARY MEDICATION (Insulin Degludec [Tresiba Flextouch U-200] 200 unit/mL (3 mL) in SQ SCH (09:00)
[2023-04-07] MEDS ORDERED: FUROSEMIDE 20 MG TAB PO SCH (09:00)
[2023-04-07] MEDS ORDERED: LANTUS PER UNIT CHARGE SC ONE (09:00)
[2023-04-07] MEDS ORDERED: amLODIPine BESYLATE 5 MG TAB PO SCH (09:00)
[2023-04-07] MEDS ORDERED: ROSUVASTATIN CALCIUM 20 MG TAB PO SCH (09:00)
[2023-04-07] MEDS ORDERED: TAMSULOSIN HCL 0.4 MG CAP PO SCH (09:00)
[2023-04-07] MEDS ORDERED: AMIODARONE 200 MG TAB PO SCH (09:00)
[2023-04-07] MEDS ORDERED: ASPIRIN 81 MG ECTAB PO SCH (09:00)
--- NOTE | 2023-04-09 06:33 | Electrocardiogram Report ---
Test Reason : Blood Pressure : / mmHG Vent. Rate : 060 BPM Atrial Rate : 060 BPM P-R Int : 176 ms QRS Dur : 132 ms QT Int : 464 ms P-R-T Axes : 000 000 172 degrees QTc Int : 464 ms AV dual-paced rhythm Abnormal ECG When compared with ECG of 21-OCT-2022 07:59, AV dual-paced rhythm has replaced Sinus rhythm Confirmed by Dillon Cotton ([id number]) on 04/09/2023 6:33:25 AM Referred By: Harshal Delvalle Confirmed By:Dillon Cotton
== END 2023-04-07 10:15 | disposition home or self-care (01) ==
LOC: 2S 12:45 → EP 12:45